=== PATIENT | female | born 1985 | race Caucasian/White ===

== ENCOUNTER → 2018-04-20 | Outpatient (CLI) | payer BC ==
[2018-04-16 14:56] VITALS: BMI 36.6
[2018-04-20 12:15] VITALS: BP 114/76; PULSE 74; RESP 16
--- NOTE | 2018-04-20 12:24 | P.PAINCN ---
History of Present Illness - Reason for Consult Consult date: 04/20/18 Intercostal neuralgia - Chief Complaint Right-sided chest pain - History of Present Illness Stacy is a 33-year-old female who presents today as a new patient consult. She presents with right-sided thoracic chest wall pain. She reports she had this pain a few years back without any known inciting events. She reports at that time she had 2 or 3 intercostal nerve blocks and reports that her pain was completely resolved up until a few months back. She now reports having right- sided thoracic pain which starts very close to the midline in the back and extends across the lower thoracic rib cage into the lower portion of her abdomen. She reports his pain is mostly burning type pain. Not use any medications for this, she has not use any topical medications for this. She has not had any recent injections for this. [place] she went to an orthopedic surgeon who ran x-rays and a bone scan did not find any reason for this. She denies having any trauma to the region. She denies any viral infection rashes in the region. Denies having any surgery in the area. She continues to work full-time at this point Review of Systems 10 point review of systems was done and is negative except as noted in the HPI above. Past Medical History Past Medical History: No Reported History Additional Past Medical History / Comment(s): HAVING PAIN "BRA LINE" ON RT SIDE History of Any Multi-Drug Resistant Organisms: None Reported Past Surgical History: Cholecystectomy Additional Past Surgical History / Comment(s): EGD. PAIN CLINIC NERVE BLOCKS. Past Anesthesia/Blood Transfusion Reactions: No Reported Reaction Smoking Status: Never smoker Medications and Allergies Home Medications Medication Instructions Recorded Confirmed Type diphenhydrAMINE [Benadryl] 25 mg PO HS PRN 02/28/14 03/02/14 History Ibuprofen [Motrin] 600 mg PO Q6HR PRN #60 tab 03/04/14 Rx Allergies Allergy/AdvReac Type Severity Reaction Status Date / Time acetaminophen AdvReac Nausea & Verified 04/20/18 12:08 [From Tylenol-Codeine #3] Vomiting codeine phosphate AdvReac Nausea & Verified 04/20/18 12:08 [From Tylenol-Codeine #3] Vomiting Physical Exam Vitals: Vital Signs Pulse Resp BP Pulse Ox 04/20/18 12:12 74 16 114/76 95 PHYSICAL EXAM: Constitutional: Awake and alert no distress Cardiovascular exam: Regular rate, no lower extremity edema, palpable pulses bilaterally Respiratory exam: No audible wheezing, no accessory muscle usage Abdominal exam: Soft nontender Muscular skeletal exam: - Thoracic Spine: normal spine alignment, no erythema, no rash. Tender to deep palpation to the right of lower thoracic spine, tender over T11-12 region extending into the right flank. - Cervical spine: Nontender to palpation bilaterally. Range of motion is not limited. Her lungs is negative bilateral. Facet loading is negative bilaterally - Lumbar spine: Preserved lumbar lordosis. No changes in skin. Nontender palpation bilateral. Patient has full range of motion in flexion and extension as well as lateral sidebending. Straight leg raise is negative. Facet loading is negative. Nontender over the SI joints. DORIS Negative, Gaenselons negative , SI Joint compression negative. Neuro exam: Normal sensation bilateral upper and lower extremities. Deep tendon reflexes are 2+ bilaterally. Grace's is negative Psychiatric exam: Cooperative, good insight Assessment and Plan Assessment: Intercostal neuralgia Plan: Discussed multiple options for analgesia of the patient. Patient is on any pain medications or any medications that may alter her mental status. I advised the patient to trial [id number] topical lidocaine cream and discuss whether she should place to cream. I've also discussed potentially doing intercostal nerve block and a potential radiofrequency ablation to the intercostal nerves if the block does not last for long. We will schedule her for right-sided T11 and T12 intercostal nerve block to be done in the procedure suite Time with Patient: Greater than 30 PQRS Measure Charge Sheet Measure #130: Documentation of Current Meds in Medical Chart: Patient's medications documented in chart Measure #226: Tobacco Use: Screen & Cessation Intervention: Pt not a tobacco user Measure #111: Pneumonia Vaccination: Pneumococcal vaccine NOT administered or previously given Measure #47: Advance Care Plan: Advance care planning discussed & documented, plan or surrogate given Measure #412: Opioid Treatment Agreement: No documentation of signed opioid treatment agreement Measure #128: Body Mass Index (BMI) Screening & Follow-up: BMI documented ABOVE normal parameters - f/u documented Measure #131: Pain Assessment & Follow-up: Pain positive & plan documented Measure #431: Unhealthy Alcohol Use Preventative Care & Scrn: Patient not identified as an unhealthy alcohol user PQRS Narrative: Smoking Status Never smoker Do You Want the Pneumonia No Vaccine AT THIS TIME? Blood Pressure 114/76 Hx Alcohol Use () No Home Medications: Ambulatory Orders diphenhydrAMINE [Benadryl] 25 mg PO HS PRN 02/28/14 Ibuprofen [Motrin] 600 mg PO Q6HR PRN #60 tab 03/04/14
== END | disposition home or self-care (01) ==
LOC: PNWHC3 11:26
PROVIDERS: ATTEND Hospitalist
DX: G58.0 Intercostal neuropathy (principal); Z88.6 Allergy status to analgesic agent; Z88.5 Allergy status to narcotic agent; Z90.49 Acquired absence of other specified parts of digestive tract
CPT/HCPCS: 99211

== ENCOUNTER → 2018-04-21 | Day surgery (SDC) | payer BC ==
[2018-04-21 08:01] VITALS: TEMP 97.7
--- NOTE | 2018-04-21 08:46 | P.PCN ---
Date of Procedure: 04/21/18 Procedure(s) Performed: PROCEDURE: right sided T10, T11, T12 Intercostal nerve block under fluoroscopic guidance. PREOP DIAGNOSIS: Intercostal neuralgia. POSTOP DIAGNOSIS: Intercostal neuralgia. ANESTHESIA: Moderate sedation with Versed 2 mg , and Fentanyl 100 mcg EBL: Minimal COMPLICATION: None. IV FLUIDS: 100 mL of normal saline. PROCEDURE INDICATION: Chronic right-sided thoracic pain secondary to intercostals neuralgia PROCEDURE DESCRIPTION: The patient was seen and identified in the preoperative area. Risks, benefits, complications, and alternatives were discussed with the patient. The patient agreed to proceed with the procedure and signed the consent. IV was started. Vital signs were stable throughout the procedure. The patient was taken to the procedure room and was placed in the prone position on the procedure table. The thoracic area was prepped and draped in the usual sterile fashion. Critical pause was taken. Using anteroposterior fluoroscopy, the right T10 rib on the right side was identified. An area approximately 2 inches lateral to the vertebral midline was localized under fluoroscopy. Subsequently, a 25-gauge, 3-1/2-inch needle was advanced under fluoroscopy towards the inferior aspect of the rib. After making contact with the rib, the needle was walked off and carefully slipped inferiorly off the rib. After negative aspiration and with the absence of paresthesias, then 1-1/2 mL of the mixture of ropivacaine 0.5% and 40 mg of Kenalog mixed together and 1, 5 ml of the mixture injected after negative aspiration . and the same procedure was repeated at the levels of right T11 ,T12 . At the end of the procedure, skin was cleansed, and bandages were applied. Patient denied any shortness of breath after the procedure. Lungs auscultation showed clear and equal air entry bilaterally after the procedure. The patient tolerated the procedure well without complications. Patient was observed in the recovery area until she met all discharge criteria.
[2018-04-21 08:52] VITALS: RESP 18
[2018-04-21 09:07] VITALS: BP 98/59; PULSE 64
--- NOTE | 2018-04-21 11:06 | FL ---
Fluoroscopy HISTORY: Pain 5 seconds fluoroscopy time supplied to the referring clinician. 1 intraoperative C-arm images document the procedure. See dictated report from anesthesia.
== END ==
LOC: ORPAIN 07:37
PROVIDERS: ATTEND Specialist
DX: G89.29 Other chronic pain (principal); G58.8 Other specified mononeuropathies; Z90.49 Acquired absence of other specified parts of digestive tract; Z79.899 Other long term (current) drug therapy; Z91.048 Other nonmedicinal substance allergy status
CPT/HCPCS: 81025; 64421; J2250; J1030; J3301; J3010; Q9966; 99152

== ENCOUNTER → 2020-01-27 | Outpatient (CLI) | payer BC ==
[2020-01-27 14:46] VITALS: BP 142/87; PULSE 73; TEMP 98.2; BMI 41.5
--- NOTE | 2020-01-27 19:06 | P.HPBAR ---
Bariatric H&P - History & Physicial H&P Date: 01/27/20 History & Physicial: Visit/CC: initial clinic visit Patient initial contact: Initial weight: Initial weight in pounds: Height: 5 ft 10 in Initial BMI: Last weight: Current weight: 131.542 kg Current weight in pounds: 290.00 Current BMI: 41.5 Malcolm body weight (based on NIH guidelines): 68.039 kg Excess body weight loss: The patient is a 35 year-old F who presents for Bariatric Assessment. Patient here as a new patient in the bariatric center. She is interested in sleeve gastrectomy. Patient suffers from depression, chronic hip pain, GERD. Underwent EGD a few years ago showing a small hiatal hernia. Takes over-the- counter antacids. Surgical history includes laparoscopic cholecystectomy and C- section. Denies tobacco use. Patient is in her second month of a 6 month supervised weight loss requirement. BMI currently 41. Denies history of DVT or dysphagia. Review of Systems The patient denies any acute changes in vision or hearing, no dysphagia or odynophagia, no chest pain or shortness of breath, no dysuria or hematuria, no headache, no runny nose, no rectal bleeding or melena, no unexplained weight loss Past Medical History Past Medical History: No Reported History Additional Past Medical History / Comment(s): HAVING PAIN "BRA LINE" ON RT SIDE. History of Any Multi-Drug Resistant Organisms: None Reported Past Surgical History: Section, Cholecystectomy Additional Past Surgical History / Comment(s): EGD. PAIN CLINIC NERVE BLOCKS. Past Anesthesia/Blood Transfusion Reactions: Motion Sickness Smoking Status: Never smoker - Past Family History Mother Family Medical History: No Reported History Surgical - Exam Vital Signs Temp Pulse BP 98.2 F 73 142/87 01/27/20 14:44 01/27/20 14:44 01/27/20 14:44 Physical exam: General: Well-developed, well-nourished HEENT: Normocephalic, sclerae nonicteric Abdomen: Nontender, nondistended Extremities: No edema Neuro: Alert and oriented Bariatric Assessment & Plan (1) Morbid obesity with BMI of 40.0-44.9, adult Narrative/Plan: 35-year-old female with morbid obesity. Patient with associated comorbidities including reflux, depression, chronic hip pain. Patient interested in sleeve gastrectomy which I believe is good surgical option for her. Patient with previous EGD suggesting hiatal hernia. Continue supervised weight loss requirements. She is on her second month. We'll plan EGD in approximately 3 months. She will follow-up in the office with me following that. Risks and benefits of the surgical options reviewed in detail with the patient today. All questions answered. Status: Acute Bariatric Checklist Checklist: Plan: Checklist: EGD: 1. Hiatal hernia: 2. H. Pylori: HgbA1c: Vitamin D: Smoking: Never smoker Primary care physician referral: DR. GARCIA Psychiatry clearance: Cardiology clearance: Sleep study: Diet journal: VTE risk score: VTE risk level: Rehab needs at discharge:
== END | disposition home or self-care (01) ==
LOC: BARWHC3 14:02
PROVIDERS: ATTEND Surgery
DX: E66.01 Morbid (severe) obesity due to excess calories (principal); Z68.41 Body mass index [BMI] 40.0-44.9, adult
CPT/HCPCS: 99211

== ENCOUNTER → 2020-06-23 | Outpatient (CLI) | payer BC ==
[2020-06-23 14:30] LABS: HCT 43.8 % (34.0-46.0); HGB 13.9 gm/dL (11.4-16.0); MCH 28.2 pg (25.0-35.0); MCHC 31.7 g/dL (31.0-37.0); Platelet Count 304 k/uL (150-450); RBC 4.92 m/uL (3.80-5.40); RDW 13.7 % (11.5-15.5)
[2020-06-23 20:22] LABS: Albumin 4.4 g/dL (3.80-4.90); Albumin/Globulin Ratio 2.1 (1.60-3.17); Anion Gap 5.9 mmol/L (4.00-12.00); BUN/Creat Ratio 18.89 Ratio (12.00-20.00); Calcium 9.4 mg/dL (8.7-10.3); Carbon Dioxide 30.1 mmol/L (21.6-31.8); Globulin 2.1 g/dL (1.6-3.3); Non-African American GFR(CKD) 82.8 (60.0-200.0); Potassium 3.9 mmol/L (3.5-5.5); Total Bilirubin 0.3 mg/dL (0.3-1.2); Total Protein 6.5 g/dL (6.2-8.2)
[2020-06-23 20:49] LABS: Folate, Serum 14.8 ng/mL
[2020-06-24 14:55] LABS: Hemoglobin A1C 5.5 % (4.0-6.0)
== END | disposition home or self-care (01) ==
LOC: LABWHC1 13:05
PROVIDERS: ATTEND Surgery
DX: E66.01 Morbid (severe) obesity due to excess calories (principal); K90.89 Other intestinal malabsorption; E55.9 Vitamin D deficiency, unspecified
CPT/HCPCS: 36415; 80053; 82306; 82607; 82746; 83036; 83540; 84425; 85027; 93005

== ENCOUNTER → 2020-10-10 | Outpatient (CLI) | payer BC ==
[2020-10-10 14:58] VITALS: BP 136/87; PULSE 75; TEMP 98.2; BMI 44.1
--- NOTE | 2020-10-10 16:05 | P.BASOAP ---
Subjective Progress Note Date: 10/10/20 Principal diagnosis: Morbid obesity Patient returns. She was last seen in January of last year. Patient with history of GERD, hip pain. Unfortunate she had a restart her supervised weight loss program. She is currently 5 months into a 7 month process. BMI 43. Since her last visit she was diagnosed with leukocytosis and is seeing a make up man in October. She is also found to have elevated inflammatory markers and recently saw rheumatology. She has gained 17 pounds since her last visit. History of hiatal hernia in the past. Objective - Vital Signs Vital signs: Vital Signs Temp 98.2 F 10/10/20 14:53 Pulse 75 10/10/20 14:53 Resp BP 136/87 10/10/20 14:53 Pulse Ox Intake & Output 10/09/20 10/10/20 10/10/20 18:59 06:59 18:59 Weight 139.706 kg - Exam Abdomen: Soft, nontender, nondistended Assessment/Plan (1) Morbid obesity with BMI of 40.0-44.9, adult Narrative/Plan: Discussed options of bariatric surgery once again with the patient. She remains interested in sleeve gastrectomy. We'll schedule first for upper endoscopy. Await supervised weight loss records. Plan: Date: 10/10/20 Initial Weight: Initial BMI: Current Weight: 139.706 kg Current BMI: 44.1 Type of Surgery: Total Volume in Band: Previous Volume: Volume Removed: Volume Added: Band Size:
== END ==
LOC: BARWHC3 14:01
PROVIDERS: ATTEND Surgery
DX: E66.01 Morbid (severe) obesity due to excess calories (principal); Z68.41 Body mass index [BMI] 40.0-44.9, adult
CPT/HCPCS: 99211

== ENCOUNTER → 2020-10-18 | Outpatient (CLI) | payer BC ==
--- NOTE | 2020-10-18 21:31 | MR ---
Result: Clinical Indication: Chronic left hip pain. Comparison: None available. Technique: Multiplanar multisequence MR examination of the left hip with coronal and axial sequences including the pelvis was performed without contrast administration. Findings: There is no significant pulmonary abnormality, acute fracture or dislocation. There is no osteonecro sis of the femoral heads. There are physiologic hip joint fluid. There are mild degenerative changes of bilateral hips. Subop timal evaluation of the acetabular labrum on this nonarthrogram study. No evidence of para labral cys t. Hamstring origins, iliopsoas and gluteal tendons are grossly intact. There is no significant trochant ramos or iliopsoas bursitis. Impression: Mild left hip osteoarthritis. Otherwise no significant abnormality.
== END | disposition home or self-care (01) ==
LOC: RADMRIMAIN 19:37
PROVIDERS: ATTEND Internal Medicine Rheumatology
DX: M16.12 Unilateral primary osteoarthritis, left hip (principal)

== ENCOUNTER 2020-10-24 10:23 | Day surgery (SDC) | payer BC ==
[2020-10-20 14:18] VITALS: BMI 44.0
[~2020-10-24 10:23] MED LIST: LACTATED RINGERS 1,000 ML IV SCH
[2020-10-24 10:52] VITALS: TEMP 97.8
[2020-10-24] MEDS ORDERED: LACTATED RINGERS 1,000 ML IV ONE (10:52)
[2020-10-24] MEDS ORDERED: PROPOFOL 10 MG/ML 20 ML VIAL IV ONE (11:38)
[2020-10-24] MEDS ORDERED: LIDOCAINE 1% INJ 10MG/ML (20 ML MDV) ONE (11:38)
--- NOTE | 2020-10-24 11:40 | P.GSHP ---
History of Present Illness H&P Date: 10/24/20 Chief Complaint: GERD Patient here today for upper endoscopy. Patient being evaluated for possible sleep apnea. Complains of mild reflux. Denies dysphagia. History of hiatal hernia on prior upper endoscopy. Past Medical History Past Medical History: GERD/Reflux, Osteoarthritis (OA) Additional Past Medical History / Comment(s): states appt with striker out scheduled for elevated WBC's., Mirena IUD. History of Any Multi-Drug Resistant Organisms: None Reported Past Surgical History: Section, Cholecystectomy Additional Past Surgical History / Comment(s): EGD. PAIN CLINIC NERVE BLOCKS. Past Anesthesia/Blood Transfusion Reactions: Previous Problems w/ Anesthesia, Motion Sickness Additional Past Anesthesia/Blood Transfusion Reaction / Comment(s): wakes up disoriented and wants to get up. Past Psychological History: Anxiety, Depression Additional Psychological History / Comment(s): . Smoking Status: Never smoker Past Alcohol Use History: Rare Past Drug Use History: None Reported - Past Family History Mother Family Medical History: No Reported History Medications and Allergies Home Medications Medication Instructions Recorded Confirmed Type Cholecalciferol [Vitamin D3] 5,000 units PO DAILY 04/20/18 10/20/20 History Biotin 10,000 mcg PO DAILY 10/20/20 10/20/20 History Ibuprofen 600 mg PO BID 10/20/20 10/20/20 History Magnesium Natural Vitality 83 mg PO DAILY 10/20/20 History Multivit with Calcium,Iron,Min 1 each PO DAILY 10/20/20 10/20/20 History [Women's Multivitamin] Omeprazole 20 mg PO DIRECTED PRN 10/20/20 10/20/20 History traZODone HCL 150 mg PO HS 10/20/20 10/20/20 History Allergies Allergy/AdvReac Type Severity Reaction Status Date / Time acetaminophen AdvReac Nausea & Verified 07/06/20 13:57 [From Tylenol-Codeine #3] Vomiting codeine phosphate AdvReac Nausea & Verified 07/06/20 13:57 [From Tylenol-Codeine #3] Vomiting Surgical - Exam Vital Signs Temp Pulse Resp BP Pulse Ox 97.8 F 78 18 137/78 98 10/24/20 10:51 10/24/20 10:51 10/24/20 10:51 10/24/20 10:51 10/24/20 10:51 Physical exam: General: Well-developed, well-nourished HEENT: Normocephalic, sclerae nonicteric Abdomen: Nontender, nondistended Extremities: No edema Neuro: Alert and oriented Assessment and Plan (1) GERD (gastroesophageal reflux disease) Narrative/Plan: Will proceed with upper endoscopy Current Visit: Yes Status: Acute Code(s): K21.9 - GASTRO-ESOPHAGEAL REFLUX DISEASE WITHOUT ESOPHAGITIS SNOMED Code(s): 666704834
--- NOTE | 2020-10-24 11:54 | P.PCN ---
Date of Procedure: 10/24/20 Procedure(s) Performed: Preoperative Dx: GERD, presurgical Postoperative Dx: Gastritis, small sliding hiatal hernia Procedure: EGD with Bx Anesthesia: Sedation Endoscopist: Dr. Adams Specimens: Antrum Endoscopic Procedure: The patient was on the endoscopy table in the left decubitus position. The Olympus gastroscope was inserted into the oropharynx and passed under direct visualization to the region of the third portion of the duodenum. From that point the scope was slowly withdrawn inspecting all s urfaces carefully. There were no neoplastic inflammatory or polypoid lesions throughout the duodenum. The pylorus was widely patent. The stomach was carefully inspected. There was mild gastritis present. A biopsy of the antrum took place to rule out H. pylori. Retroflexion revealed a small sliding hiatal hernia. The GE junction was present approximately 1 cm or so above the diaphragmatic hiatus. The esophagus was then carefully examined. There were no neoplastic inflammatory or polypoid lesions throughout the visualized esophagus. The patient was then taken to the recovery room in stable condition per anesthesia guidelines. Recommendations: Resume diet. Await biopsy results. Follow-up bariatric
[2020-10-24 12:09] VITALS: RESP 16
[2020-10-24 12:33] VITALS: BP 116/80; PULSE 71
== END 2020-10-24 12:40 | disposition home or self-care (01) ==
LOC: ORWHC2ENDO 10:23
PROVIDERS: ATTEND Surgery
DX: K29.50 Unspecified chronic gastritis without bleeding (principal); K44.9 Diaphragmatic hernia without obstruction or gangrene; K21.9 Gastro-esophageal reflux disease without esophagitis; M19.90 Unspecified osteoarthritis, unspecified site; Z97.5 Presence of (intrauterine) contraceptive device; Z98.891 History of uterine scar from previous surgery; Z90.49 Acquired absence of other specified parts of digestive tract; Z98.890 Other specified postprocedural states; F41.9 Anxiety disorder, unspecified; F32.9 Major depressive disorder, single episode, unspecified; E66.01 Morbid (severe) obesity due to excess calories; Z68.41 Body mass index [BMI] 40.0-44.9, adult; Z79.1 Long term (current) use of non-steroidal anti-inflammatories (NSAID); Z79.899 Other long term (current) drug therapy; Z88.5 Allergy status to narcotic agent
CPT/HCPCS: 81025; 88305; 43239; J2001; J2704; 43202

== ENCOUNTER → 2020-10-30 | Outpatient (CLI) | payer BC ==
[2020-10-31 09:03] VITALS: BMI 44.2
== END ==
LOC: BARWHC3 08:43
PROVIDERS: ATTEND Surgery
DX: E66.01 Morbid (severe) obesity due to excess calories (principal); Z71.3 Dietary counseling and surveillance; Z88.5 Allergy status to narcotic agent; Z88.6 Allergy status to analgesic agent; Z68.41 Body mass index [BMI] 40.0-44.9, adult
CPT/HCPCS: 97804

== ENCOUNTER → 2020-11-07 | Outpatient (CLI) | payer BC ==
[2020-11-07 16:07] VITALS: BP 118/76; PULSE 73; TEMP 98.2; BMI 44.0
--- NOTE | 2020-11-07 17:44 | P.BASOAP ---
Subjective Progress Note Date: 11/07/20 Principal diagnosis: Morbid obesity Patient returns after recent upper endoscopy. Patient was found to have gastritis and a small hiatal hernia. No H. pylori. Since seen last time patient has had clearance from rheumatology. She is still waiting for clearance for hematology regarding her leukocytosis. She is having a sciatic nerve injection on 11/24. No additional changes to the history and physical. Objective - Vital Signs Vital signs: Vital Signs Temp 98.2 F 11/07/20 16:04 Pulse 73 11/07/20 16:04 Resp BP 118/76 11/07/20 16:04 Pulse Ox Intake & Output 11/06/20 11/07/20 11/07/20 18:59 06:59 18:59 Weight 139.253 kg - Exam Abdomen: Soft, nontender, nondistended Assessment/Plan (1) Morbid obesity with BMI of 40.0-44.9, adult Narrative/Plan: Patient doing well after recent upper endoscopy. Surgical consent form and associated risks reviewed in detail. Patient would like to proceed with sleeve gastrectomy. The risks of bleeding, infection, stenosis, stricture, leak, abscess, fistula formation, peritonitis, poor weight loss, reflux, vomiting, conversion to an open procedure, aborting sleeve gastrectomy, MS, PE, DVT, and were discussed. The patient understands and wishes to proceed. Await hematology clearance. We'll schedule. Plan: Date: 11/07/20 Initial Weight: Initial BMI: Current Weight: 139.253 kg Current BMI: 44.0 Type of Surgery: Total Volume in Band: Previous Volume: Volume Removed: Volume Added: Band Size:
== END ==
LOC: BARWHC3 14:30
PROVIDERS: ATTEND Surgery
DX: E66.01 Morbid (severe) obesity due to excess calories (principal); K44.9 Diaphragmatic hernia without obstruction or gangrene; K29.70 Gastritis, unspecified, without bleeding; Z68.41 Body mass index [BMI] 40.0-44.9, adult; Z88.6 Allergy status to analgesic agent; Z88.5 Allergy status to narcotic agent
CPT/HCPCS: 99211

== ENCOUNTER → 2021-01-01 | Outpatient (CLI) | payer BC ==
[2021-01-01 15:49] LABS: Basophils # (A) 0.1 k/uL (0-0.2); Basophils % (A) 1 %; Eosinophils # (A) 0.3 k/uL (0-0.7); Eosinophils % (A) 2 %; Lymphocytes # (A) 2.4 k/uL (1.0-4.8); Lymphocytes % (A) 19 %; MCH 28.9 pg (25.0-35.0); MCHC 32.4 g/dL (31.0-37.0); MCV 89.2 fL (80.0-100.0); Mean Platelet Volume 6.8; Monocytes # (A) 0.4 k/uL (0-1.0); Monocytes % (A) 3 %; Neutrophils # (A) 9.1 k/uL (1.3-7.7); Neutrophils % (A) 73 %; Platelet Count 261 k/uL (150-450); RBC 4.83 m/uL (3.80-5.40); RDW 14.6 % (11.5-15.5); WBC 12.6 k/uL (3.8-10.6)
[2021-01-01 15:58] LABS: ALT 28 U/L (4-34); AST 27 U/L (14-36); African American GFR (CKD) >90 (>60 ml/min/1.73 sqM); Albumin 4.2 g/dL (3.5-5.0); Alkaline Phosphatase 94 U/L (38-126); Anion Gap 8 mmol/L; Blood Urea Nitrogen 16 mg/dL (7-17); Calcium 9.6 mg/dL (8.4-10.2); Carbon Dioxide 27 mmol/L (22-30); Chloride 102 mmol/L (98-107); Glucose 87 mg/dL (74-99); Non-African American GFR(CKD) >90 (>60 ml/min/1.73 sqM); Potassium 3.8 mmol/L (3.5-5.1); Sodium 137 mmol/L (137-145); Total Bilirubin 0.5 mg/dL (0.2-1.3); Total Protein 6.9 g/dL (6.3-8.2)
== END | disposition home or self-care (01) ==
LOC: LABWHC1 15:22
PROVIDERS: ATTEND Surgery
DX: Z01.812 Encounter for preprocedural laboratory examination (principal)
CPT/HCPCS: 36415; 80053; 85025

== ENCOUNTER 2021-01-15 07:45 | Inpatient (IN) | payer BC ==
[~2021-01-15 07:45] MED LIST changes: +DEXAMETHASONE SOD PHOSPHATE 4 MG/ML 1 ML VIAL IV ONE; +ENOXAPARIN 40 MG/0.4 ML SYRINGE SQ PRN; -LACTATED RINGERS 1,000 ML IV SCH; +MIDAZOLAM 2 MG/2 ML VIAL IV PRN; +ONDANSETRON 4 MG/2 ML VIAL IVP ONE; +SCOPOLAMINE 1.5MG/72HR PATCH TRANSDERM ONE; +ceFAZolin 3 GM in SODIUM CHLORIDE 0.9% 100 ML IVPB PRN
[2021-01-15] MEDS ORDERED: LACTATED RINGERS 1,000 ML IV ONE ×2 (09:12→12:08)
--- NOTE | 2021-01-15 10:15 | P.GSHP ---
History of Present Illness H&P Date: 01/15/21 Chief Complaint: Morbid obesity 36-year-old female known to our service. Patient with history of morbid obesity. First seen for bariatric weight loss in January 2020. Patient's over from depression, hip pain, GERD. Patient interested in sleeve gastrectomy. Underwent EGD which showed mild gastritis and small hiatal hernia. Patient takes [id number] antacids. Surgical history includes laparoscopic cholecystectomy and . No tobacco use. No history of DVT or dysphasia. BMI 41. Patient was seen by hematology for leukocytosis and cleared. Past Medical History Past Medical History: GERD/Reflux, Osteoarthritis (OA) Additional Past Medical History / Comment(s): hiatal hernia, arthritis in hips, had increased WBC's -told due to not absorbing iron, steroids 07/2020 History of Any Multi-Drug Resistant Organisms: None Reported Past Surgical History: Section, Cholecystectomy Additional Past Surgical History / Comment(s): EGD. PAIN CLINIC NERVE BLOCKS. Past Anesthesia/Blood Transfusion Reactions: Previous Problems w/ Anesthesia, Motion Sickness, Postoperative Nausea & Vomiting (PONV) Additional Past Anesthesia/Blood Transfusion Reaction / Comment(s): "I wake up confused and want to get right up", Smoking Status: Never smoker - Past Family History Mother Family Medical History: No Reported History Medications and Allergies Home Medications Medication Instructions Recorded Confirmed Type Cholecalciferol [Vitamin D3] 5,000 units PO DAILY 04/20/18 01/10/21 History Biotin 10,000 mcg PO DAILY 10/20/20 01/10/21 History Ibuprofen 600 mg PO BID 10/20/20 01/10/21 History Magnesium Natural Vitality 83 mg PO DAILY 10/20/20 01/10/21 History Multivit with Calcium,Iron,Min 1 each PO DAILY 10/20/20 01/10/21 History [Women's Multivitamin] Omeprazole 20 mg PO DIRECTED PRN 10/20/20 01/10/21 History traZODone HCL 150 mg PO HS 10/20/20 01/10/21 History Citalopram Hydrobromide [CeleXA] 20 mg PO HS 01/10/21 01/10/21 History levonorgestreL [Mirena] 1 each IY DIRECTED 01/10/21 01/10/21 History Allergies Allergy/AdvReac Type Severity Reaction Status Date / Time acetaminophen AdvReac Nausea & Verified 01/10/21 10:21 [From Tylenol-Codeine #3] Vomiting codeine phosphate AdvReac Nausea & Verified 01/10/21 10:21 [From Tylenol-Codeine #3] Vomiting bubble bath Allergy Rash/Hives Uncoded 01/10/21 10:21 perfume Allergy Rash/Hives Uncoded 01/10/21 10:21 Surgical - Exam Vital Signs Temp Pulse Resp BP Pulse Ox 97.8 F 65 18 124/76 99 01/15/21 09:11 01/15/21 09:11 01/15/21 09:11 01/15/21 09:11 01/15/21 09:11 Physical exam: General: Well-developed, well-nourished HEENT: Normocephalic, sclerae nonicteric Abdomen: Nontender, nondistended Extremities: No edema Neuro: Alert and oriented Assessment and Plan (1) Morbid obesity with BMI of 40.0-44.9, adult Narrative/Plan: The residual female with morbid obesity and associated comorbidities. Patient also with hiatal hernia on recent EGD will proceed with laparoscopic sleeve ga strectomy with hiatal hernia repair at this time. The risks of bleeding, infection, stenosis, stricture, leak, abscess, fistula formation, peritonitis, poor weight loss, reflux, vomiting, conversion to an open procedure, aborting sleeve gastrectomy, [place], PE, DVT, and were discussed. The patient understands and wishes to proceed. Current Visit: No Status: Acute Code(s): E66.01 - MORBID (SEVERE) OBESITY DUE TO EXCESS CALORIES; Z68.41 - BODY MASS INDEX [BMI]40.0-44.9, ADULT SNOMED Code(s): 370924738
[2021-01-15] MEDS ORDERED: HYDROmorphone (PF) 1 MG/ML ONE (10:41)
[2021-01-15] MEDS ORDERED: fentaNYL (PF) 50 MCG/ML 2 ML AMP ONE (10:41)
[2021-01-15] MEDS ORDERED: MIDAZOLAM 2 MG/2 ML VIAL ONE (10:41)
[2021-01-15] MEDS ORDERED: LIDOCAINE 1% INJ 10MG/ML (20 ML MDV) ONE (10:41)
[2021-01-15] MEDS ORDERED: ROCURONIUM 10 MG/ML (5 ML VIAL) IV ONE (10:41)
[2021-01-15] MEDS ORDERED: PROPOFOL 10 MG/ML 20 ML VIAL IV ONE (10:41)
[2021-01-15] MEDS ORDERED: NEOSTIGMINE 1 MG/ML 10 ML VIAL ONE (10:41)
[2021-01-15] MEDS ORDERED: SUCCINYLCHOLINE CHLORIDE 100 MG/5 ML SYR IV ONE (10:41)
[2021-01-15] MEDS ORDERED: GLYCOPYRROLATE 0.2 MG/ML 2 ML VIAL ONE (10:41)
[2021-01-15] MEDS ORDERED: LIDOCAINE 1%-EPI 1:100,000 20 ML VIAL SQ ONE ×2 (11:12)
[2021-01-15] MEDS ORDERED: diphenhydrAMINE 50 MG/ML 1 ML VIAL IVP PRN (12:48)
[2021-01-15] MEDS ORDERED: NALOXONE 0.4 MG/ML 1 ML VIAL IV PRN (12:48)
[2021-01-15] MEDS ORDERED: HYOSCYAMINE ORAL DROPS 1.875 MG/15 ML BOTTLE PO PRN (12:48)
--- NOTE | 2021-01-15 12:53 | P.OP ---
Date of Procedure: 01/15/21 Procedure(s) Performed: PREOPERATIVE DIAGNOSIS: Morbid obesity POSTOPERATIVE DIAGNOSIS: Same PROCEDURE: Laparoscopic sleeve gastrectomy SURGEON: Angie EBL: Minimal ANESTHESIA: General COMPLICATIONS: None OPERATIVE PROCEDURE: Patient was placed in the operating table in the supine position. She was placed under general anesthesia at that time. The abdomen was prepped and draped in sterile fashion after the patient was placed in lithotomy. A 5 mm optical trocar was used to enter the abdominal cavity in the left upper quadrant. Insufflation took place to 15 millimeters mercury. An additional right subxiphoid 5 mm trocar was then placed under direct visualization and then removed. 2 additional 5 mm trochars were placed in the right upper quadrant and left upper quadrant under direct visualization and a 15 mm trocar in the supraumbilical location. The liver was retracted using a medium Huan liver retractor through the right subxiphoid trocar site. The hiatus was inspected. The gastrohepatic ligament was divided. A small vessel was seen traversing this which was clipped. As I inspected the stomach circumferentially there was no visible hiatal hernia seen. At that point I moved to the mid aspect of the greater curvature the stomach. The short gastric vasculature was divided using a LigaSure device proximally. I then switched and divided the short gastrics distally to a 3-4 cm from the pylorus. The dissection took place up to the left diaphragmatic crura at that point. The posterior short gastrics were likewise divided using the LigaSure device. Once the stomach was fully mobilized the blunt tipped 40-Czech bougie dilator was advanced into the stomach and advanced all the way to the prepyloric location. A black echelon 60 stapler with echelon Endopath staple line reinforcement was utilized and fired tangentially across the antrum taking care to avoid narrowing at the incisura angularis. Subsequent firings of the stapler took place. A total of 5 green echelon 60 staplers with echelon Endopath staple line reinforcement took place proximally staying on the outer edge of our dilator. Once we reached the most proximal portion of the stomach a single firing of the gold echelon [address] The oral gastric tube was reinserted. The stomach was insufflated with approximately 100 mL of methylene blue. No evidence of leak or obstruction was seen. The patient did during the procedure have a few small areas of bleeding along the staple line which were controlled using a 5 mm clip supervisor meter shop. Tisseel fibrin glue was used along the length of the staple line. The stomach remnant was removed from the 15 mm trocar site without difficulty. The fascia at the 15 more site was closed using interrupted 0 Vicryl sutures with the laparoscopic suture passer and Tunde Emerson technique. The insufflation was evacuated. The skin at all 5 incisions were closed using 4-0 Monocryl sutures. Skin glue was then applied. DISPOSITION: Stable to recovery room
[2021-01-15] MEDS: fentaNYL (PF) 50 MCG/ML 2 ML AMP IV PRN ×2 (13:17→13:22)
[2021-01-15] MEDS ORDERED: HYDROmorphone 1 MG/ML 1 ML SYRINGE IVP ONE (13:32)
[2021-01-15] MEDS ORDERED: HYDROmorphone 0.5 MG/0.5 ML SYRINGE IVP ONE ×2 (14:02→14:44)
[2021-01-15] MEDS: SIMETHICONE 40 MG/0.6 ML DROPS 2,000 MG/30 ML BOTTLE PO PRN (14:27)
--- NOTE | 2021-01-15 14:39 | P.CONS ---
History of Present Illness - Reason for Consult Depression, gastroesophageal reflux disease - History of Present Illness Patient is a 36-year-old the female admitted for laparoscopic sleeve gastrectomy, I saw her postoperatively patient is in significant pain received Dilaudid and fentanyl for pain. Patient was bit nauseous as well. REVIEW OF SYSTEMS: CONSTITUTIONAL: No fever, no malaise, no fatigue. HEENT: No recent visual problems or hearing problems. Denied any sore throat. CARDIOVASCULAR: No chest pain, orthopnea, PND, no palpitations, no syncope. PULMONARY: No shortness of breath, no cough, no hemoptysis. GASTROINTESTINAL as mentioned in HPI. NEUROLOGICAL: No headaches, no weakness, no numbness. HEMATOLOGICAL: Denies any bleeding or petechiae. GENITOURINARY: Denies any burning micturition, frequency, or urgency. MUSCULOSKELETAL/RHEUMATOLOGICAL: Denies any joint pain, swelling, or any muscle pain. ENDOCRINE: Denies any polyuria or polydipsia. The rest of the 14-point review of systems is negative. PHYSICAL EXAMINATION: GENERAL: The patient is alert and oriented x3, not in any acute distress. Well developed, well nourished. Obese HEENT: Pupils are round and equally reacting to light. EOMI. No scleral icterus. No conjunctival pallor. Normocephalic, atraumatic. No pharyngeal erythema. No thyromegaly. CARDIOVASCULAR: S1 and S2 present. No murmurs, rubs, or gallops. PULMONARY: Chest is clear to auscultation, no wheezing or crackles. ABDOMEN: Soft, tenderness and pain in the surgical site area, nondistended, normoactive bowel sounds. No palpable organomegaly. MUSCULOSKELETAL: No joint swelling or deformity. EXTREMITIES: No cyanosis, clubbing, or pedal edema. NEUROLOGICAL: Gross neurological examination did not reveal any focal deficits. SKIN: No rashes. Assessment and plan - obesity status post laparoscopic sleeve gastrectomy patient will be monitored and he'll present pain medications. pain is expected to improve. Patient received simethicone and Protonix. -Costa physical reflux disease -Depression for which patient is on citalopram patient was started on this medication whenever she can tolerate by mouth medications. DVT prophylaxis: Patient is on Lovenox Past Medical History Past Medical History: GERD/Reflux, Osteoarthritis (OA) Additional Past Medical History / Comment(s): hiatal hernia, arthritis in hips, had increased WBC's -told due to not absorbing iron, steroids 07/2020 History of Any Multi-Drug Resistant Organisms: None Reported Past Surgical History: Section, Cholecystectomy Additional Past Surgical History / Comment(s): EGD. PAIN CLINIC NERVE BLOCKS. Past Anesthesia/Blood Transfusion Reactions: Previous Problems w/ Anesthesia, Motion Sickness, Postoperative Nausea & Vomiting (PONV) Additional Past Anesthesia/Blood Transfusion Reaction / Comm: "I wake up confused and want to get right up", Smoking Status: Never smoker - Past Family History Mother Family Medical History: No Reported History Medications and Allergies Home Medications Medication Instructions Recorded Confirmed Type Cholecalciferol [Vitamin D3] 5,000 units PO DAILY 04/20/18 01/10/21 History Biotin 10,000 mcg PO DAILY 10/20/20 01/10/21 History Ibuprofen 600 mg PO BID 10/20/20 01/10/21 History Magnesium Natural Vitality 83 mg PO DAILY 10/20/20 01/10/21 History Multivit with Calcium,Iron,Min 1 each PO DAILY 10/20/20 01/10/21 History [Women's Multivitamin] Omeprazole 20 mg PO DIRECTED PRN 10/20/20 01/10/21 History traZODone HCL 150 mg PO HS 10/20/20 01/10/21 History Citalopram Hydrobromide [CeleXA] 20 mg PO HS 01/10/21 01/10/21 History levonorgestreL [Mirena] 1 each IY DIRECTED 01/10/21 01/10/21 History Allergies Allergy/AdvReac Type Severity Reaction Status Date / Time acetaminophen AdvReac Nausea & Verified 01/10/21 10:21 [From Tylenol-Codeine #3] Vomiting codeine phosphate AdvReac Nausea & Verified 01/10/21 10:21 [From Tylenol-Codeine #3] Vomiting bubble bath Allergy Rash/Hives Uncoded 01/10/21 10:21 perfume Allergy Rash/Hives Uncoded 01/10/21 10:21 Physical Exam Vitals: Vital Signs Temp Pulse Resp BP BP Pulse Ox 01/15/21 14:30 79 16 155/87 97 01/15/21 14:15 80 16 156/88 95 01/15/21 14:00 78 16 153/78 98 01/15/21 13:47 90 16 151/66 97 01/15/21 13:29 93 16 141/71 96 01/15/21 13:14 82 16 132/66 96 01/15/21 12:59 87 20 153/81 98 01/15/21 09:11 97.8 F 65 18 124/76 99 Intake and Output 01/14/21 01/15/21 01/15/21 22:59 06:59 14:59 Intake Total 1200 Output Total 10 Balance 1190 Intake: IV 1200 Output: Estimated Blood Loss 10 Other: Weight 130.3 kg
[2021-01-15] MEDS ORDERED: PROMETHAZINE INJ 25 MG/ML 1 ML VIAL IVPB ONE ×2 (15:10→16:30)
[2021-01-15] MEDS ORDERED: fentaNYL (PF) 50 MCG/ML 2 ML AMP IVP ONE (15:44)
[2021-01-15] MEDS ORDERED: fentaNYL (PF) 50 MCG/ML 2 ML AMP IV ONE (16:28)
[2021-01-15] MEDS: LACTATED RINGERS 1,000 ML IV SCH ×3 (17:04→21:34)
[2021-01-15] MEDS ORDERED: MEPERIDINE 50 MG/ML SYRINGE IVP ONE (17:43)
[2021-01-15] MEDS: ONDANSETRON 4 MG/2 ML VIAL IVP PRN (20:05)
[2021-01-15] MEDS: ALBUTEROL NEBULIZED 2.5 MG/3 ML INHALATION SCH ×2 (20:06→20:11)
[2021-01-15] MEDS: HYDROmorphone 1 MG/ML 1 ML SYRINGE IVP PRN ×2 (21:02→23:15)
[2021-01-15] MEDS: 0.9% NACL WITH KCL 20 MEQ/L 1,000 ML IV SCH (21:32)
[2021-01-15] MEDS: ENOXAPARIN 40 MG/0.4 ML SYRINGE SQ SCH (23:15)
[2021-01-15] MEDS: traZODone HCL 50 MG TAB PO SCH (23:16)
[2021-01-15] MEDS: CITALOPRAM HYDROBROMIDE 20 MG TAB PO SCH (23:16)
[2021-01-16] MEDS: ONDANSETRON 4 MG/2 ML VIAL IVP PRN ×4 (01:38→20:56)
[2021-01-16] MEDS: HYDROmorphone 1 MG/ML 1 ML SYRINGE IVP PRN ×5 (01:38→14:20)
[2021-01-16] MEDS: SIMETHICONE 40 MG/0.6 ML DROPS 2,000 MG/30 ML BOTTLE PO PRN ×4 (01:50→20:49)
[2021-01-16] MEDS: 0.9% NACL WITH KCL 20 MEQ/L 1,000 ML IV SCH (03:49)
[2021-01-16] MEDS: PANTOPRAZOLE 40 MG/10 ML VIAL IV SCH (07:13)
[2021-01-16] MEDS: ALBUTEROL NEBULIZED 2.5 MG/3 ML INHALATION SCH ×4 (07:15→18:54)
[2021-01-16 08:44] LABS: Basophils % (A) 0 %; Eosinophils # (A) 0.1 k/uL (0-0.7); Eosinophils % (A) 0 %; HCT 50.5 % (34.0-46.0); HGB 16.5 gm/dL (11.4-16.0); Lymphocytes # (A) 1.5 k/uL (1.0-4.8); Lymphocytes % (A) 8 %; MCH 30.3 pg (25.0-35.0); MCHC 32.7 g/dL (31.0-37.0); MCV 92.4 fL (80.0-100.0); Mean Platelet Volume 8.8; Monocytes # (A) 1.1 k/uL (0-1.0); Monocytes % (A) 6 %; Neutrophils # (A) 15.1 k/uL (1.3-7.7); Neutrophils % (A) 84 %; Platelet Count 267 k/uL (150-450); RBC 5.46 m/uL (3.80-5.40); RDW 13.9 % (11.5-15.5)
[2021-01-16 09:18] VITALS: BMI 41.2
[2021-01-16 09:50] LABS: African American GFR (CKD) >90 (>60 ml/min/1.73 sqM); Anion Gap 14 mmol/L; Blood Urea Nitrogen 8 mg/dL (7-17); Calcium 9.4 mg/dL (8.4-10.2); Carbon Dioxide 22 mmol/L (22-30); Chloride 102 mmol/L (98-107); Non-African American GFR(CKD) >90 (>60 ml/min/1.73 sqM); Phosphorus 2.9 mg/dL (2.5-4.5); Potassium 4.7 mmol/L (3.5-5.1); Sodium 138 mmol/L (137-145)
[2021-01-16] MEDS ORDERED: DEXAMETHASONE SOD PHOSPHATE 4 MG/ML 1 ML VIAL IV STA (10:18)
[2021-01-16] MEDS: 1: MVI, ADULT NO.4 WITH VIT K 10 ML, THIAMINE 100 MG, FOLIC ACID 1 MG, POTASSIUM CHLORID IV SCH ×12 (10:25→17:34)
--- NOTE | 2021-01-16 11:14 | FL ---
SINGLE CONTRAST UPPER GI EXAMINATION: CLINICAL HISTORY: 36-year-old female postop bariatric surgery, sleeve gastrectomy. TECHNIQUE: Single contrast exam performed with 5 ml Isovue-370 contrast. Total fluoroscopy time: 46 seconds. Total images: 16. FINDINGS: The patient swallowed oral contrast with difficulty due to nausea with only 3 swallows. Esophageal pe ristalsis and motility are within normal limits. There is satisfactory passage of contrast from the e sophagus into the stomach with post surgical changes of gastrectomy demonstrated. There is adequate f low of contrast across the spleen and into the duodenum. There is no evidence of contrast extravasati on to suggest leak. Trace to mild postoperative free air below the right hemidiaphragm. Mild patchy retrocardiac opacity, probably atelectasis. IMPRESSION: 1. Limited ingestion of oral contrast due to nausea. No evidence for leak or obstruction status post sleeve gastrectomy. 2. Trace to mild postoperative free air below the right hemidiaphragm. Some patchy retrocardiac opaci ty, probably atelectasis.
--- NOTE | 2021-01-16 11:36 | P.PN ---
<Aye Chavez - Last Filed: 01/16/21 11:31> Subjective Progress Note Date: 01/16/21 CHIEF COMPLAINT: Morbid obesity HISTORY OF PRESENT ILLNESS: Patient is status post laparoscopic sleeve gastrectomy. Postop day #1. She is complaining of nausea and dry heaves. The Dilaudid does make the nausea worse. She denies any flatus. She denies any difficulty urinating. Afebrile. Her upper GI shows limited ingestion of oral contrast due to nausea. No evidence for leak or extraction status post gastrectomy. Trace to mild postoperative free air below the right hemidiaphragm. Some patchy retrocardiac opacity, probably atelectasis. Afebrile. WBC is 18 hemoglobin 16.5 platelets 267 sodium 138 potassium 4.7 creatinine 0.65 magnesium 2.0 phosphorus 2.9 PHYSICAL EXAM: VITAL SIGNS: Reviewed. GENERAL: Well-developed in no acute distress. HEENT: No sclera icterus. Extraocular movements grossly intact. Moist buccal mucosa. Head is atraumatic, normocephalic. ABDOMEN: Soft. Nondistended. Incision sites clean dry and intact NEUROLOGIC: Alert and oriented. Cranial nerves II through XII grossly intact. ASSESSMENT: 1. Morbid obesity status post laparoscopic sleeve gastrectomy PLAN: -Start bariatric clear liquid diet -Patient given 1 dose of dexamethasone for nausea and dry heaves -IV Tylenol added for pain control -Continue antiemetics -Encourage patient to ambulate -Encourage patient to use incentive spirometer -GI prophylaxis Protonix and DVT prophylaxis Lovenox Physician Honing Machine Set Up Operator note has been reviewed by physician. Signing provider agrees with the documented findings, assessment, and plan of care. Objective - Vital Signs Vital signs: Vital Signs Temp 98.2 F 01/16/21 07:29 Pulse 83 01/16/21 07:29 Resp 16 01/16/21 07:29 BP 161/93 01/16/21 07:29 Pulse Ox 92 L 01/16/21 07:29 Intake & Output 01/15/21 01/16/21 01/16/21 18:59 06:59 18:59 Intake Total 2200 Output Total 10 Balance 2189 Weight 130.3 kg 130.3 kg 130.3 kg Intake: IV 2200 Output: Estimated Blood Loss 10 Other: Voiding Method Toilet # Voids 2 - Labs CBC & Chem 7: 01/16/21 06:43 08/03/21 06:43 Labs: Abnormal Lab Results - Last 24 Hours (Table) 01/16/21 Range/Units 06:43 WBC 18.0 H (3.8-10.6) k/uL RBC 5.46 H (3.80-5.40) m/uL Hgb 16.5 H (11.4-16.0) gm/dL Hct 50.5 H (34.0-46.0) % Neutrophils # 15.1 H (1.3-7.7) k/uL Monocytes # 1.1 H (0-1.0) k/uL <Ishan Adams - Last Filed: 01/16/21 15:54> Subjective As above. Patient was having nausea with some intermittent dry heaves earlier today. These have improved. She is now tolerating sips of liquids. White blood cell count 18. No tachycardia. Continue increasing activity. Objective - Vital Signs Vital signs: Vital Signs Temp 98.2 F 01/16/21 14:40 Pulse 75 01/16/21 14:40 Resp 16 01/16/21 14:40 BP 164/95 01/16/21 14:40 Pulse Ox 97 01/16/21 14:40 Intake & Output 01/15/21 01/16/21 01/16/21 18:59 06:59 18:59 Intake Total 2200 Output Total 10 Balance 2190 Weight 130.3 kg 130.3 kg 130.3 kg Intake: IV 2200 Output: Estimated Blood Loss 10 Other: Voiding Method Toilet # Voids 2 6 - Labs CBC & Chem 7: 01/16/21 06:43 01/16/21 06:43 Labs: Abnormal Lab Results - Last 24 Hours (Table) 01/16/21 Range/Units 06:43 WBC 18.0 H (3.8-10.6) k/uL RBC 5.46 H (3.80-5.40) m/uL Hgb 16.5 H (11.4-16.0) gm/dL Hct 50.5 H (34.0-46.0) % Neutrophils # 15.1 H (1.3-7.7) k/uL Monocytes # 1.1 H (0-1.0) k/uL Assessment and Plan (1) Morbid obesity with BMI of 40.0-44.9, adult Current Visit: No Status: Acute Code(s): E66.01 - MORBID (SEVERE) OBESITY DUE TO EXCESS CALORIES; Z68.41 - BODY MASS INDEX [BMI]40.0-44.9, ADULT SNOMED Code(s): 884962956
[2021-01-16] MEDS: ENOXAPARIN 40 MG/0.4 ML SYRINGE SQ SCH (11:38)
[2021-01-16] MEDS: ACETAMINOPHEN IV (For NPO) 1,000 MG in EMPTY BAG 1 BAG IVPB SCH ×2 (11:47→17:33)
--- NOTE | 2021-01-16 13:56 | P.PN ---
Subjective Progress Note Date: 01/16/21 Patient is a 36-year-old the female admitted for laparoscopic sleeve gastrectomy, I saw her postoperatively patient is in significant pain received Dilaudid and fentanyl for pain. Patient was bit nauseous as well. 01/16/2021 Patient is examined at the bedside today, resting in bed. She states she is having quite a bit of nausea. Zofran has been given this morning. She is requesting something additional for her nausea. Patient has completed her upper GI series, it was a limited study due to patient being able unable to swallow the barium related to her nausea. Patient has been advanced to a bariatric clear liquid diet via surgical services. Patient is receiving IV Tylenol for pain management, and addition to IV Dilaudid. Patient is receiving TPN. Vital signs are stable with morning including a temperature of 98.2. Heart rate of 83, blood pressure 161/93, and patient is 92% on room air. ROS: Constitutional: Denied any fatigue denied any fever. Cardio vascular: denied any chest pain, palpitations Gastrointestinal denied any vomiting, reports nasuea Pulmonary: Denied any shortness of breath cough Neurologic denied any new focal deficits All inpatient medications were reviewed and appropriate changes in these medications as dictated in the interval history and assessment and plan. PHYSICAL EXAMINATION: GENERAL: The patient is alert and oriented x3, not in any acute distress. Well developed, well nourished. HEENT: Pupils are round and equally reacting to light. EOMI. No scleral icterus. No conjunctival pallor. Normocephalic, atraumatic. No pharyngeal erythema. No thyromegaly. CARDIOVASCULAR: S1 and S2 present. No murmurs, rubs, or gallops. PULMONARY: Chest is clear to auscultation, no wheezing or crackles. ABDOMEN: Soft, nontender, nondistended, normoactive bowel sounds. No palpable organomegaly. MUSCULOSKELETAL: No joint swelling or deformity. EXTREMITIES: No cyanosis, clubbing, or pedal edema. NEUROLOGICAL: Gross neurological examination did not reveal any focal deficits. SKIN: No rashes. Assessment and plan - obesity, BMI 41.2. status post op day 1 laparoscopic sleeve gastrectomy, patient will be closely monitored, Pain is expected to improve. Patient has complaints of quite a bit of nausea. Zofran on board. A one-time dose of dexamethasone was given via surgical services to help with the nausea and pain. Patient has been advanced to a bariatric clear diet. -Gastrointestinal reflux disease, patient will continue on IV Protonix -Depression for which patient is on citalopram patient was started on this medication whenever she can tolerate by mouth medications. -Patient will continue to use incentive spirometer and increase activity. DVT prophylaxis: Patient is on Lovenox Objective - Vital Signs Vital signs: Vital Signs Temp 98.2 F 01/16/21 07:29 Pulse 83 01/16/21 07:29 Resp 16 01/16/21 07:29 BP 161/93 01/16/21 07:29 Pulse Ox 92 L 01/16/21 07:29 Intake & Output 01/15/21 01/16/21 01/16/21 18:59 06:59 18:59 Intake Total 2200 Output Total 10 Balance 2190 Weight 130.3 kg 130.3 kg 130.3 kg Intake: IV 2200 Output: Estimated Blood Loss 10 Other: Voiding Method Toilet # Voids 2 - Labs CBC & Chem 7: 01/16/21 06:43 01/16/21 06:43 Labs: Abnormal Lab Results - Last 24 Hours (Table) 01/16/21 Range/Units 06:43 WBC 18.0 H (3.8-10.6) k/uL RBC 5.46 H (3.80-5.40) m/uL Hgb 16.5 H (11.4-16.0) gm/dL Hct 50.5 H (34.0-46.0) % Neutrophils # 15.1 H (1.3-7.7) k/uL Monocytes # 1.1 H (0-1.0) k/uL Assessment and Plan Time with Patient: Greater than 30
[2021-01-16] MEDS ORDERED: KETOROLAC 15 MG/ML 1 ML VIAL IVP SCH (14:30)
[2021-01-16] MEDS: KETOROLAC 15 MG/ML 1 ML VIAL IVP SCH ×2 (16:23→20:50)
[2021-01-16] MEDS: DEXAMETHASONE SOD PHOSPHATE 4 MG/ML 1 ML VIAL IV SCH (16:24)
[2021-01-16] MEDS: CITALOPRAM HYDROBROMIDE 20 MG TAB PO SCH (20:49)
[2021-01-16] MEDS: traZODone HCL 50 MG TAB PO SCH (20:50)
[2021-01-17] MEDS: DEXAMETHASONE SOD PHOSPHATE 4 MG/ML 1 ML VIAL IV SCH (00:44)
[2021-01-17] MEDS: ENOXAPARIN 40 MG/0.4 ML SYRINGE SQ SCH ×2 (00:44→10:44)
[2021-01-17] MEDS: ACETAMINOPHEN IV (For NPO) 1,000 MG in EMPTY BAG 1 BAG IVPB SCH ×2 (00:45→05:13)
[2021-01-17] MEDS: 1: MVI, ADULT NO.4 WITH VIT K 10 ML, THIAMINE 100 MG, FOLIC ACID 1 MG, POTASSIUM CHLORID IV SCH ×6 (02:02)
[2021-01-17] MEDS: KETOROLAC 15 MG/ML 1 ML VIAL IVP SCH ×2 (03:45→10:44)
[2021-01-17] MEDS: SIMETHICONE 40 MG/0.6 ML DROPS 2,000 MG/30 ML BOTTLE PO PRN (05:13)
[2021-01-17] MEDS: ONDANSETRON 4 MG/2 ML VIAL IVP PRN (07:29)
[2021-01-17] MEDS: HYDROmorphone 1 MG/ML 1 ML SYRINGE IVP PRN (07:29)
[2021-01-17] MEDS: LACTATED RINGERS 1,000 ML IV SCH (07:45)
[2021-01-17] MEDS ORDERED: bisacodyL 5 MG TABLET.DR PO PRN (08:00)
[2021-01-17 08:08] VITALS: BP 153/93; PULSE 77; RESP 18; TEMP 98
[2021-01-17] MEDS: ALBUTEROL NEBULIZED 2.5 MG/3 ML INHALATION SCH ×2 (08:18→12:07)
[2021-01-17] MEDS: PANTOPRAZOLE 40 MG/10 ML VIAL IV SCH (09:40)
[2021-01-17 10:24] LABS: Basophils # (A) 0.02 X 10*3/uL (0.00-0.10); Basophils % (A) 0.2 %; Eosinophils # (A) 0 X 10*3/uL (0.04-0.35); Eosinophils % (A) 0 %; HCT 45.3 % (37.2-46.3); HGB 14.8 g/dL (12.0-15.0); Lymphocytes # (A) 0.96 X 10*3/uL (0.90-5.00); Lymphocytes % (A) 7.2 %; MCH 29.7 pg (27.0-32.0); MCHC 32.7 g/dL (32.0-37.0); Mean Platelet Volume 10.7 fL (9.5-12.2); Monocytes # (A) 0.32 X 10*3/uL (0.20-1.00); Monocytes % (A) 2.4 %; Neutrophils # (A) 11.92 X 10*3/uL (1.80-7.70); Neutrophils % (A) 89.7 %; Platelet Count 343 X 10*3/uL (140-440); RBC 4.98 X 10*6/uL (4.10-5.20); RDW 14.1 % (11.5-14.5); WBC 13.28 X 10*3/uL (4.50-10.00)
--- NOTE | 2021-01-17 12:32 | P.DS ---
Providers Date of admission: 01/15/21 08:38 Expected date of discharge: 01/17/21 Attending physician: Ishan Adams Consults: 01/15/21 12:48 Consult Physician Routine Consulting Provider: Danelle Gustafson Consult Reason/Comments: Medical management Do you want consulting provider notified?: Yes Primary care physician: Cat Colon [facility] Course: Discharge diagnosis 1. Morbid obesity status post laparoscopic sleeve gastrectomy Hospital course This is a 36-year-old female known history of morbid obesity. She is status post laparoscopic sleeve gastrectomy. She tolerated surgery well. Her upper GI showed no evidence of leak or obstruction. She is tolerating bariatric clear liquid diet. Her pain is controlled. She has been up and ambulating. Afebrile. She is stable for discharge. Please refer to chart for any further details. Physician Balance Wheel Motion Inspector note has been reviewed by physician. Signing provider agrees with the documented findings, assessment, and plan of care. Patient Condition at Discharge: Stable Plan - Discharge Summary Discharge Rx Participant: Yes New Discharge Prescriptions: New bisacodyL [Dulcolax] 5 mg PO DAILY PRN #10 tablet. PRN Reason: Constipation Simethicone 40 mg/0.6 ml Drops [Mylicon Drops] 40 mg PO PCHS PRN #30 ml PRN Reason: Gas Omeprazole [PriLOSEC] 40 mg PO DAILY #30 capsule. Ondansetron Odt [Zofran Odt] 4 mg PO Q8HR PRN #9 tab PRN Reason: Nausea traMADol HCl [Ultram] 50 mg PO Q6HR PRN 2 Days #6 tab PRN Reason: Pain Continue Citalopram Hydrobromide [CeleXA] 20 mg PO HS traZODone HCL 150 mg PO HS levonorgestreL [Mirena] 1 each IY DIRECTED Discontinued Cholecalciferol [Vitamin D3] 5,000 units PO DAILY Ibuprofen 600 mg PO BID Multivit with Calcium,Iron,Min [Women's Multivitamin] 1 each PO DAILY Magnesium Natural Vitality 83 mg PO DAILY Biotin 10,000 mcg PO DAILY Omeprazole 20 mg PO DIRECTED PRN PRN Reason: Heartburn Discharge Medication List traZODone HCL 150 mg PO HS 10/20/20 [History] Citalopram Hydrobromide [CeleXA] 20 mg PO HS 01/10/21 [History] levonorgestreL [Mirena] 1 each IY DIRECTED 01/10/21 [History] Omeprazole [PriLOSEC] 40 mg PO DAILY #30 capsule. 01/17/21 [Rx] Ondansetron Odt [Zofran Odt] 4 mg PO Q8HR PRN #9 tab 01/17/21 [Rx] Simethicone 40 mg/0.6 ml Drops [Mylicon Drops] 40 mg PO PCHS PRN #30 ml 01/17/21 [Rx] bisacodyL [Dulcolax] 5 mg PO DAILY PRN #10 tablet. 01/17/21 [Rx] traMADol HCl [Ultram] 50 mg PO Q6HR PRN 2 Days #6 tab 01/17/21 [Rx] [facility] [place] [facility] [place] [facility] Patient Instructions/Handouts: *Surgery [facility] - (Anesthesia) Discharge Instructions Outpatient Surgery, *Surgery [facility] - Scopalamine Patch Instructions Activity/Diet/Wound Care/Special Instructions: No driving while taking Ultram No lifting over 10 pounds You may shower. No soaking or tub baths for 2 weeks Very light activity until you are reevaluated at your follow up appointment with your surgeon No straws or carbonated beverages Hold on taking vitamins until seen by surgeon Patient to follow up with Caitlin bariatric nurse, on Friday Discharge Disposition: HOME SELF-CARE
--- NOTE | 2021-01-17 13:57 | P.PN ---
Subjective Progress Note Date: 01/17/21 Patient is a 36-year-old the female admitted for laparoscopic sleeve gastrectomy, I saw her postoperatively patient is in significant pain received Dilaudid and fentanyl for pain. Patient was bit nauseous as well. 01/16/2021 Patient is examined at the bedside today, resting in bed. She states she is having quite a bit of nausea. Zofran has been given this morning. She is requesting something additional for her nausea. Patient has completed her upper GI series, it was a limited study due to patient being able unable to swallow the barium related to her nausea. Patient has been advanced to a bariatric clear liquid diet via surgical services. Patient is receiving IV Tylenol for pain management, and addition to IV Dilaudid. Patient is receiving TPN. Vital signs are stable with morning including a temperature of 98.2. Heart rate of 83, blood pressure 161/93, and patient is 92% on room air. 01/17/2021 Patient is examined at the bedside today. She is postop day 2 from a laparoscopic sleeve gastrectomy. She is sitting on the edge of the bed. She states that she is getting ready to ambulate in the hallway. Patient states that her pain is much improved from yesterday. An she has been tolerating the bariatric clear liquid diet well. Patient states that she has yet to pass gas. It is increasing her activity level. She states that she is using her incentive spirometer. Patient is receiving IV Dilaudid for pain management. Vital signs are stable this morning patient remains afebrile. She denies any nausea vomiting, she reports mild abdominal incisional pain. She denies any chest pain cough or shortness of breath. ROS: Constitutional: Denied any fatigue denied any fever. Cardio vascular: denied any chest pain, palpitations Gastrointestinal denied any vomiting, reports nasuea Pulmonary: Denied any shortness of breath cough Neurologic denied any new focal deficits All inpatient medications were reviewed and appropriate changes in these medications as dictated in the interval history and assessment and plan. PHYSICAL EXAMINATION: GENERAL: The patient is alert and oriented x3, not in any acute distress. Well developed, well nourished. HEENT: Pupils are round and equally reacting to light. EOMI. No scleral icterus. No conjunctival pallor. Normocephalic, atraumatic. No pharyngeal erythema. No thyromegaly. CARDIOVASCULAR: S1 and S2 present. No murmurs, rubs, or gallops. PULMONARY: Chest is clear to auscultation, no wheezing or crackles. ABDOMEN: Soft, nontender, nondistended, normoactive bowel sounds. No palpable organomegaly. MUSCULOSKELETAL: No joint swelling or deformity. EXTREMITIES: No cyanosis, clubbing, or pedal edema. NEUROLOGICAL: Gross neurological examination did not reveal any focal deficits. SKIN: No rashes. Assessment and plan - obesity, BMI 41.2. status post op day 2 laparoscopic sleeve gastrectomy, zak ent will be closely monitored, Pain is expected to improve. Patient is receiving Zofran, and Mylicon drops for the gas.. Patient has been advanced to a bariatric clear diet. -Gastrointestinal reflux disease, patient will continue on IV Protonix -Depression for which patient is on citalopram patient was started on this medication whenever she can tolerate by mouth medications. -Patient will continue to use incentive spirometer and increase activity. DVT prophylaxis: Patient is on Lovenox Objective - Vital Signs Vital signs: Vital Signs Temp 98 F 01/17/21 08:07 Pulse 77 01/17/21 08:07 Resp 18 01/17/21 08:07 BP 153/93 01/17/21 08:07 Pulse Ox 94 L 01/17/21 08:07 Intake & Output 01/16/21 01/17/21 01/17/21 18:59 06:59 18:59 Intake Total 1021.2 Balance 1021.2 Weight 130.3 kg Intake: Intake, IV Titration 1021.2 Amount Mvi, Adult No.4 with Vit 1021.2 K 10 ml Thiamine 100 mg Folic Acid 1 mg Potassium Chloride 20 meq In Sodium Chloride 0.9% 1, 000 ml @ 100 mls/hr IV . BY DURATION LORENA Rx#: [id number] Other: Voiding Method Toilet Toilet # Voids 6 1 - Labs CBC & Chem 7: 01/17/21 05:17 01/16/21 06:43 Labs: Abnormal Lab Results - Last 24 Hours (Table) 01/17/21 Range/Units 05:17 WBC 13.28 H (4.50-10.00) X 10*3/uL Immature Gran # 0.06 H (0.00-0.04) X 10*3/uL Neutrophils # 11.92 H (1.80-7.70) X 10*3/uL Eosinophils # 0 L (0.04-0.35) X 10*3/uL
== END 2021-01-17 14:35 | disposition home or self-care (01) | DRG 621 ==
LOC: 2ORMAIN 08:38 → 4SSUR 18:43
PROVIDERS: ADMIT Surgery; ATTEND Surgery
PROC: 0DB64Z3 Excision of Stomach, Percutaneous Endoscopic Approach, Vertical (ICD-10-PCS; principal; 2021-01-15 10:45)
DX: E66.01 Morbid (severe) obesity due to excess calories (principal); F32.9 Major depressive disorder, single episode, unspecified; Z68.41 Body mass index [BMI] 40.0-44.9, adult; K21.9 Gastro-esophageal reflux disease without esophagitis; K44.9 Diaphragmatic hernia without obstruction or gangrene; K29.70 Gastritis, unspecified, without bleeding; M16.0 Bilateral primary osteoarthritis of hip; Z79.1 Long term (current) use of non-steroidal anti-inflammatories (NSAID); Z79.3 Long term (current) use of hormonal contraceptives; Z79.899 Other long term (current) drug therapy; Z90.49 Acquired absence of other specified parts of digestive tract; Z87.19 Personal history of other diseases of the digestive system; Z98.890 Other specified postprocedural states; Z71.3 Dietary counseling and surveillance; Z98.891 History of uterine scar from previous surgery; Z88.6 Allergy status to analgesic agent; Z88.5 Allergy status to narcotic agent; Z91.048 Other nonmedicinal substance allergy status
CPT/HCPCS: 74240; 80051; 81025; 82310; 82565; 83735; 84100; 84520; 85025; 88307; 94760; 94762

== ENCOUNTER → 2021-01-19 | Outpatient (CLI) | payer BC ==
[2021-01-19 10:36] VITALS: BP 101/64; PULSE 73; TEMP 98; BMI 40.6
== END ==
LOC: BARWHC3 09:59
PROVIDERS: ATTEND Surgery
DX: E66.01 Morbid (severe) obesity due to excess calories (principal); Z68.41 Body mass index [BMI] 40.0-44.9, adult; Z98.84 Bariatric surgery status
CPT/HCPCS: 99211

== ENCOUNTER → 2021-01-23 | Outpatient (CLI) | payer BC ==
[2021-01-23 12:42] VITALS: BP 111/73; PULSE 67; RESP 16; TEMP 97.8; BMI 39.7
--- NOTE | 2021-01-23 14:44 | P.BASOAP ---
Subjective Progress Note Date: 01/23/21 Principal diagnosis: Morbid obesity Patient returns for 1 week recheck. On 1 sleeve gastrectomy 8 days ago. The patient says she is doing well. She had a few episodes of dizziness when bending over. Thinks she is taking in enough liquids. No significant pain. No nausea or vomiting. No heartburn. Objective - Vital Signs Vital signs: Vital Signs Temp 97.8 F 01/23/21 12:39 Pulse 67 01/23/21 12:39 Resp 16 01/23/21 12:39 BP 111/73 01/23/21 12:39 Pulse Ox Intake & Output 01/22/21 01/23/21 01/23/21 18:59 06:59 18:59 Weight 125.645 kg - Exam Abdomen: Soft, nondistended, incisions clean and dry Assessment/Plan (1) Morbid obesity with BMI of 40.0-44.9, adult Narrative/Plan: Patient overall doing well one week after surgery. Continue bariatric liquids. Plan recheck 2 weeks. Plan: Date: 01/23/21 Initial Weight: 139.706 kg Initial BMI: 44.1 Current Weight: 125.645 kg Current BMI: 39.7 Type of Surgery: Total Volume in Band: Previous Volume: Volume Removed: Volume Added: Band Size:
== END ==
LOC: BARWHC3 12:27
PROVIDERS: ATTEND Surgery
DX: E66.01 Morbid (severe) obesity due to excess calories (principal); Z71.3 Dietary counseling and surveillance; Z68.41 Body mass index [BMI] 40.0-44.9, adult; Z98.84 Bariatric surgery status; Z88.6 Allergy status to analgesic agent; Z88.5 Allergy status to narcotic agent; Z91.09 Other allergy status, other than to drugs and biological substances
CPT/HCPCS: 97803; 99211

== ENCOUNTER → 2021-01-25 | Outpatient (CLI) | payer BC ==
[2021-01-25] MEDS: SODIUM CHLORIDE 0.9% 1,000 ML IV SCH ×2 (11:40→12:42)
[2021-01-25 11:49] VITALS: BP 102/59; PULSE 68; RESP 16; TEMP 97.8
== END ==
LOC: PROCWHC3 10:54
PROVIDERS: ATTEND Surgery Plastic and Reconstructive Surgery
DX: E86.0 Dehydration (principal)
CPT/HCPCS: 96360; 96361

== ENCOUNTER → 2021-02-06 | Outpatient (CLI) | payer BC ==
[2021-02-06 14:48] VITALS: BP 117/82; PULSE 69; RESP 18; TEMP 97.8; BMI 39.1
--- NOTE | 2021-02-06 15:32 | P.BASOAP ---
Subjective Progress Note Date: 02/06/21 Principal diagnosis: Morbid obesity Patient returns for recheck. Last seen 01/23. Underwent sleeve gastrectomy 01/15. Dizzy episodes are improved. No nausea or vomiting. She has lost 5 pounds. No heartburn. Remains on antiacids. No pain. Objective - Vital Signs Vital signs: Vital Signs Temp 97.8 F 02/06/21 14:43 Pulse 69 02/06/21 14:43 Resp 18 02/06/21 14:43 BP 117/82 02/06/21 14:43 Pulse Ox Intake & Output 02/05/21 02/06/21 02/06/21 18:59 06:59 18:59 Weight 123.649 kg - Exam Abdomen: Soft, nontender, nondistended Assessment/Plan (1) Morbid obesity with BMI of 40.0-44.9, adult Narrative/Plan: Patient doing well at this time. Continue monitoring liquid and protein intake. May resume normal activities. Continue antiacids. Will order one month labs for next week. Follow up one month. Plan: Date: 02/06/21 Initial Weight: 139.706 kg Initial BMI: 44.1 Current Weight: 123.649 kg Current BMI: 39.1 Type of Surgery: Total Volume in Band: Previous Volume: Volume Removed: Volume Added: Band Size:
== END ==
LOC: BARWHC3 14:32
PROVIDERS: ATTEND Surgery
DX: E66.01 Morbid (severe) obesity due to excess calories (principal); Z68.39 Body mass index [BMI] 39.0-39.9, adult; Z88.6 Allergy status to analgesic agent; Z88.5 Allergy status to narcotic agent; Z91.048 Other nonmedicinal substance allergy status
CPT/HCPCS: 97803; 99211

== ENCOUNTER → 2021-03-20 | Outpatient (CLI) | payer BC ==
[2021-03-20 14:03] VITALS: BP 111/77; PULSE 64; RESP 16; TEMP 98; BMI 36.1
--- NOTE | 2021-03-20 14:18 | P.BASOAP ---
Subjective Progress Note Date: 03/20/21 Principal diagnosis: Morbid obesity Patient returns for recheck. She was last seen 02/06. Surgery was performed 01/15. Has had some dysphagia to chicken at times. She does fine with ground meat and fish. She has lost 20 pounds since her last visit. She has been fatigued. No heartburn symptoms. Remains on omeprazole. Had labs performed 02/16. These looked normal. Objective - Vital Signs Vital signs: Vital Signs Temp 98 F 03/20/21 13:59 Pulse 64 03/20/21 13:59 Resp 16 03/20/21 13:59 BP 111/77 03/20/21 13:59 Pulse Ox Intake & Output 03/19/21 03/20/21 03/20/21 18:59 06:59 18:59 Weight 114.305 kg - Exam Abdomen: Soft, nontender, nondistended Assessment/Plan (1) Morbid obesity with BMI of 40.0-44.9, adult Narrative/Plan: Patient doing well at this time. Continue dietary and exercise regimen. Follow-up 4-6 weeks. Check 3 months labs at that time. Continue omeprazole for now. Plan: Date: 03/20/21 Initial Weight: 139.706 kg Initial BMI: 44.1 Current Weight: 114.305 kg Current BMI: 36.1 Type of Surgery: Total Volume in Band: Previous Volume: Volume Removed: Volume Added: Band Size:
== END ==
LOC: BARWHC3 13:48
PROVIDERS: ATTEND Surgery
DX: E66.01 Morbid (severe) obesity due to excess calories (principal); Z68.36 Body mass index [BMI] 36.0-36.9, adult; Z88.5 Allergy status to narcotic agent; Z88.6 Allergy status to analgesic agent; Z91.048 Other nonmedicinal substance allergy status
CPT/HCPCS: 99211

== ENCOUNTER → 2021-04-24 | Outpatient (CLI) | payer BC ==
[2021-04-24 14:14] VITALS: BP 125/82; PULSE 78; TEMP 98.2; BMI 33.8
--- NOTE | 2021-04-24 14:21 | P.BASOAP ---
Subjective Progress Note Date: 04/24/21 Principal diagnosis: Morbid obesity Patient returns for reevaluation. Doing fairly well since her last visit. She did have her first episode of vomiting yesterday after eating chicken and rice. No other issues. No heartburn. Taking her antiacids twice daily. She has lost 16 pounds since her last visit. She has been creating some sweets recently but doing better. She is due for 3 month labs. She has increased stress because she is selling her home and buying a new home. Objective - Vital Signs Vital signs: Vital Signs Temp 98.2 F 04/24/21 14:03 Pulse 78 04/24/21 14:03 Resp BP 125/82 04/24/21 14:03 Pulse Ox Intake & Output 04/23/21 04/24/21 04/24/21 18:59 06:59 18:59 Weight 107.048 kg - Exam Abdomen: Soft, nontender, nondistended Assessment/Plan (1) Morbid obesity with BMI of 40.0-44.9, adult Narrative/Plan: Patient doing well today. Check three-month labs. Decrease antiacids to once daily. Follow-up 4-6 weeks. Plan: Date: 04/24/21 Initial Weight: 139.706 kg Initial BMI: 44.1 Current Weight: 107.048 kg Current BMI: 33.8 Type of Surgery: Total Volume in Band: Previous Volume: Volume Removed: Volume Added: Band Size:
== END ==
LOC: BARWHC3 13:49
PROVIDERS: ATTEND Surgery
DX: E66.01 Morbid (severe) obesity due to excess calories (principal); Z68.33 Body mass index [BMI] 33.0-33.9, adult; Z88.6 Allergy status to analgesic agent; Z88.5 Allergy status to narcotic agent; Z91.048 Other nonmedicinal substance allergy status
CPT/HCPCS: 99211

== ENCOUNTER → 2021-05-22 | Outpatient (CLI) | payer BC | END | disposition home or self-care (01) | LOC: LABMAIN 16:45 | PROVIDERS: ATTEND Surgery | DX: Z53.9 Procedure and treatment not carried out, unspecified reason (principal) ==

== ENCOUNTER → 2021-05-29 | Outpatient (CLI) | payer BC ==
[2021-05-29 13:25] VITALS: BP 102/68; PULSE 71; TEMP 97.8; BMI 32.7
--- NOTE | 2021-05-29 13:34 | P.BASOAP ---
Subjective Progress Note Date: 05/29/21 Principal diagnosis: Morbid obesity Patient returns for recheck. Since her last visit she has had no further episodes of nausea and vomiting. No heartburn symptoms taking her antiacids once daily. Patient has had some dizziness episodes when getting up from a seated position while at work. She has checked her blood pressure notices systolic blood pressures in the 80s to 90s and systolic blood pressures in the 40s to 50s. Patient says her symptoms shortly resolved. She is drinking enough liquids. No pain. Labs checked last visit demonstrate a mild leukocytosis and a level of 40. She states she missed her iron infusion last month. Objective - Vital Signs Vital signs: Vital Signs Temp 97.8 F 05/29/21 13:17 Pulse 71 05/29/21 13:17 Resp BP 102/68 05/29/21 13:17 Pulse Ox Intake & Output 05/28/21 05/29/21 05/29/21 18:59 06:59 18:59 Weight 103.419 kg - Exam Abdomen: Soft, nontender, nondistended Assessment/Plan (1) Morbid obesity with BMI of 40.0-44.9, adult Narrative/Plan: Patient doing well at this time. Recommend that she talk to her primary care physician regarding her orthostatic hypotension. Increase hydration. Increase exercise level. Continue antiacids daily. Follow-up 6 weeks. We'll check labs at that time. 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 Plan: Date: 05/29/21 Initial Weight: 139.706 kg Initial BMI: 44.1 Current Weight: 103.419 kg Current BMI: 32.7 Type of Surgery: Total Volume in Band: Previous Volume: Volume Removed: Volume Added: Band Size:
== END ==
LOC: BARWHC3 12:52
PROVIDERS: ATTEND Surgery
DX: E66.01 Morbid (severe) obesity due to excess calories (principal); Z68.32 Body mass index [BMI] 32.0-32.9, adult; Z88.6 Allergy status to analgesic agent; Z88.5 Allergy status to narcotic agent; Z91.09 Other allergy status, other than to drugs and biological substances
CPT/HCPCS: 99211

== ENCOUNTER → 2021-07-10 | Outpatient (CLI) | payer BC ==
[2021-07-10 13:10] VITALS: BP 118/76; PULSE 66; RESP 16; TEMP 97.7; BMI 31.4
--- NOTE | 2021-07-10 13:34 | P.BASOAP ---
Subjective Progress Note Date: 07/10/21 Principal diagnosis: Morbid obesity Patient returns for reevaluation. Sleeve gastrectomy performed 01/15. Dizziness episodes have resolved. She is now taking her antiacids every other day without heartburn symptoms. No pain. No nausea or vomiting. Patient recently moved and she is quite busy. Objective - Vital Signs Vital signs: Vital Signs Temp 97.7 F 07/10/21 13:08 Pulse 66 07/10/21 13:08 Resp 16 07/10/21 13:08 BP 118/76 07/10/21 13:08 Pulse Ox Intake & Output 07/09/21 07/10/21 07/10/21 18:59 06:59 18:59 Weight 99.337 kg - Exam Abdomen: Soft, nontender, nondistended Assessment/Plan (1) Morbid obesity with BMI of 40.0-44.9, adult Narrative/Plan: Patient doing well at this time. Continue every other day antiacid therapy. Recheck labs next visit. Continue exercise and dietary program. Plan: Date: 07/10/21 Initial Weight: 139.706 kg Initial BMI: 44.1 Current Weight: 99.337 kg Current BMI: 31.4 Type of Surgery: Total Volume in Band: Previous Volume: Volume Removed: Volume Added: Band Size:
== END ==
LOC: BARWHC3 13:01
PROVIDERS: ATTEND Surgery
DX: E66.01 Morbid (severe) obesity due to excess calories (principal); Z68.31 Body mass index [BMI] 31.0-31.9, adult; Z88.6 Allergy status to analgesic agent; Z88.5 Allergy status to narcotic agent; Z91.09 Other allergy status, other than to drugs and biological substances
CPT/HCPCS: 99211

== ENCOUNTER → 2021-11-02 | Outpatient (CLI) | payer BC | END | disposition home or self-care (01) | LOC: LABPAT 15:56 | PROVIDERS: ATTEND Surgery | DX: Z53.9 Procedure and treatment not carried out, unspecified reason (principal) ==

== ENCOUNTER → 2021-12-25 | Outpatient (CLI) | payer BC ==
[2021-12-25 13:48] VITALS: BP 103/66; PULSE 65; RESP 16; TEMP 98.5; BMI 29.1
--- NOTE | 2021-12-25 14:02 | P.BASOAP ---
Subjective Progress Note Date: 12/25/21 Principal diagnosis: Morbid obesity patient returns for recheck. She was last seen in October. Unfortunately her her father who has MDS had a recent stroke. Doing better now. Patient has not been focusing on her own health as much. She has only lost 1 pound since her last visit. She has back to doing shakes for breakfast. No GERD, no vomiting. Objective - Vital Signs Vital signs: Vital Signs Temp 98.5 F 12/25/21 13:47 Pulse 65 12/25/21 13:47 Resp 16 12/25/21 13:47 BP 103/66 12/25/21 13:47 Pulse Ox FiO2 Intake & Output 12/24/21 12/25/21 12/25/21 18:59 06:59 18:59 Weight 92.079 kg - Exam Abdomen: Soft, nontender, nondistended Assessment/Plan (1) Morbid obesity with BMI of 40.0-44.9, adult Narrative/Plan: Continue dietary and exercise regimen. Plan recheck 2 months. We'll check annual labs at that time. Plan: Date: 12/25/21 Initial Weight: 139.706 kg Initial BMI: 44.1 Current Weight: 92.079 kg Current BMI: 29.1 Type of Surgery: Total Volume in Band: Previous Volume: Volume Removed: Volume Added: Band Size:
== END ==
LOC: BARWHC3 13:25
PROVIDERS: ATTEND Surgery
DX: E66.01 Morbid (severe) obesity due to excess calories (principal); Z68.29 Body mass index [BMI] 29.0-29.9, adult; Z88.6 Allergy status to analgesic agent; Z88.5 Allergy status to narcotic agent; Z91.09 Other allergy status, other than to drugs and biological substances
CPT/HCPCS: 99211

== ENCOUNTER → 2022-04-23 | Outpatient (CLI) | payer BC ==
[2022-04-23 12:53] VITALS: BP 122/80; PULSE 67; RESP 16; TEMP 97.9; BMI 29.8
--- NOTE | 2022-04-23 22:25 | P.BASOAP ---
Subjective Progress Note Date: 04/23/22 Principal diagnosis: Morbid obesity Patient returns for recheck. Last seen in December. Still having a lot of stress at home with his father being ill. They recently stopped his cancer treatment. She has gained 5 pounds. No longer taking antiacids. She is due for annual lab work. Objective - Vital Signs Vital signs: Vital Signs Temp 97.9 F 04/23/22 12:50 Pulse 67 04/23/22 12:50 Resp 16 04/23/22 12:50 BP 122/80 04/23/22 12:50 Pulse Ox FiO2 Intake & Output 04/23/22 04/23/22 04/24/22 06:59 18:59 06:59 Weight 94.347 kg - Exam Abdomen: Soft, nontender, nondistended Assessment/Plan (1) Morbid obesity with BMI of 40.0-44.9, adult Narrative/Plan: Patient doing well at this time. Check annual lab work. Continue dietary and exercise regimen. Recheck 3 months. Plan: Date: 04/23/22 Initial Weight: 139.706 kg Initial BMI: 44.1 Current Weight: 94.347 kg Current BMI: 29.8 Type of Surgery: Vertical Sleeve Gastrectomy Total Volume in Band: Previous Volume: Volume Removed: Volume Added: Band Size:
== END ==
LOC: BARWHC3 12:40
PROVIDERS: ATTEND Surgery
DX: E66.01 Morbid (severe) obesity due to excess calories (principal); Z68.29 Body mass index [BMI] 29.0-29.9, adult; Z88.5 Allergy status to narcotic agent; Z88.8 Allergy status to other drugs, medicaments and biological substances; Z91.048 Other nonmedicinal substance allergy status; K21.9 Gastro-esophageal reflux disease without esophagitis
CPT/HCPCS: 99211

== ENCOUNTER → 2022-07-01 | Outpatient (CLI) | payer BC ==
[2022-07-01 17:59] LABS: HCT 43.3 % (37.2-46.3); HGB 13.9 g/dL (12.0-15.0); MCHC 32.1 g/dL (32.0-37.0); MCV 93.5 fL (80.0-97.0); Mean Platelet Volume 9.7 fL (9.5-12.2); NRBC Per 100 WBC 0 /100 WBCS (0.0-0.0); Platelet Count 248 X 10*3/uL (140-440); RBC 4.63 X 10*6/uL (4.10-5.20); RDW 12.3 % (11.5-14.5); WBC 10.08 X 10*3/uL (4.50-10.00)
[2022-07-01 18:15] LABS: African American GFR (CKD) 94.7 (60.0-200.0); Albumin 4.4 g/dL (3.8-4.9); Albumin/Globulin Ratio 2.1 (1.60-3.17); Anion Gap 10.8 mmol/L (10.00-18.00); Blood Urea Nitrogen 14.4 mg/dL (9.0-27.0); Calcium 9.4 mg/dL (8.7-10.3); Carbon Dioxide 26.2 mmol/L (20.0-27.5); Globulin 2.1 g/dL (1.6-3.3); Non-African American GFR(CKD) 81.7 (60.0-200.0); Potassium 4.5 mmol/L (3.5-5.5); Total Bilirubin 0.4 mg/dL (0.30-1.20); Total Protein 6.5 g/dL (6.2-8.2)
== END ==
LOC: LABWHC1 10:47
PROVIDERS: ATTEND Surgery
DX: E66.01 Morbid (severe) obesity due to excess calories (principal); K90.89 Other intestinal malabsorption; E55.9 Vitamin D deficiency, unspecified
CPT/HCPCS: 36415; 80053; 82306; 82607; 82746; 83540; 84425; 85027

== ENCOUNTER → 2023-05-13 | Outpatient (CLI) | payer BC ==
--- NOTE | 2023-05-14 09:14 | CT ---
EXAMINATION TYPE: CT lumbar spine wo con DATE OF EXAM: 05/13/2023 5:38 PM COMPARISON: None HISTORY: Presurgical planning- fusion for L5, chronic lower back pain CT DLP: 1056.9 mGycm Automated exposure control for dose reduction was used. Unenhanced CT of the lumbar spine was performed. Bone and soft tissue window settings are submitted as well as coronal and sagittal reconstructions. Metallic densities seen within the left lobe liver. Correlate for prior cholecystectomy. There is thi ckening subtle nodularity to the adrenal glands to small to characterize. Aorta caliber. Assessment spinal canal limited due to resolution. Mild hypertrophic change of the SI joint. Hypodensity upper pole left kidney indeterminate by noncontrast technique. L1-L2: Normal disc space height. No disc herniation protrusion or central stenosis. No facet joint arthropathy. No evidence for foraminal encroachment. L2-L3: Normal disc space height. No disc herniation protrusion or central stenosis. Mild circumferen tial disc bulging. No facet joint arthropathy. No evidence for foraminal encroachment. L3-L4: Mild circumferential disc bulging but no disc herniation, canal stenosis, or foraminal L4-L5: Normal disc space height. No disc herniation protrusion or central stenosis. No facet joint arthropathy. No evidence for foraminal encroachment. L5-S1: Vacuum disc compatible with severe degenerative disc disease. Bilateral spondylolysis of L5. M inimal anterolisthesis. Broad-based posterior disc bulging greater laterally to the left but no focal herniation. There is a moderate left-sided foraminal encroachment. IMPRESSION: 1. At L5-S1 there is bilateral spondylolysis of L5 minimal anterolisthesis. Broad-based disc bulging greater laterally left with moderate left foraminal encroachment. Recommend follow-up MRI.
== END | disposition home or self-care (01) ==
LOC: RADCTMAIN 17:23
PROVIDERS: ATTEND Orthopaedic Surgery
DX: Z01.818 Encounter for other preprocedural examination (principal); M43.17 Spondylolisthesis, lumbosacral region; M47.817 Spondylosis without myelopathy or radiculopathy, lumbosacral region; M51.27 Other intervertebral disc displacement, lumbosacral region
CPT/HCPCS: 72131

== ENCOUNTER → 2023-06-26 | Outpatient (CLI) | payer BC | END | disposition home or self-care (01) | LOC: LABPAT 10:48 | PROVIDERS: ATTEND Orthopaedic Surgery | DX: Z01.812 Encounter for preprocedural laboratory examination (principal); M43.07 Spondylolysis, lumbosacral region; M54.12 Radiculopathy, cervical region; Z22.322 Carrier or suspected carrier of Methicillin resistant Staphylococcus aureus | CPT/HCPCS: 86850; 86900; 86901; 87070 ==

== ENCOUNTER 2023-07-04 11:35 | Day surgery (SDC) | payer BC ==
[2023-06-26 16:37] VITALS: BMI 32.3
--- NOTE | 2023-07-04 08:12 | P.HPOR ---
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 I reviewed the patient's clinical syndrome, physical findings, and imaging studies during the appointment today. It is my impression that the patient has a diagnosis of. 1. L5-S1 spondylolysis 2. Grade II spondylolisthesis of L5 on S1, unstable 3. Left lower extremity radiculopathy 4. Left lower extremity weakness 5. Low back pain I outlined the natural course history without intervention and various interventional options. Spine Surgery Risk Review Ms. Aguilar is presenting for evaluation of low back and bilateral lower extremity pain, left lower extremity numbness, tingling, and weakness. It was my pleasure to have seen and examined Ms. Aguilar. In our visit today we have had a chance to go over subjective complaints, physical examination findings and treatments including the natural course history without intervention and various interventional options. The patients imaging demonstrates: X-Rays of the Lumbar Spine taken in office on 04/18/2023; 5 views (AP, lateral flexion, & extension) reviewed by Dr. Connolly and demonstrate: L5-S1 spondylolysis with b/l pars defects at L5 causing Grade II spondylolisthesis that is mobile on F/E films. Pseudoarticulation has formed between S1 SAP and Pars of L5 which is unstable. Spondylosis at L5-S1 with near complete disc height loss. Flattened LL due to the collapse and the listhesis. Remaining features of the lumbar spine remain age appropriate with minimal disc height loss or fracture. No lesions. AP Pelvis: No lesions, no fractures. Level pelvis. MRI of Lumbar Spine [facility]: Redemonstration of the GII spondylolyisthesis of L5-S1 due to b/l pars defects and spondylolysis of L5-S1. No acute fractures noted. b/l foraminal stenosis that is moderate due to slip and disc bulge as well as ligamental hypertrophy and surrounding structures. No lesions noted. On physical exam, Ms. Aguilar demonstrates: A throbbing, pressure-like pain throughout the low back that radiates down into the bilateral buttock, hips, and lower extremities with a sharp, shooting quality. The patient states that her left leg symptoms are much more severe than the right at this time. The patient notes that her left leg pain is associated with numbness, tingling, and increased weakness. The patient states that her symptoms are exacerbated by prolonged activity, which makes it very difficult for her to complete many of her regular activities of daily living. The patient reports experiencing moderate to severe sleep disturbances related to her ongoing pain and associated symptoms. I have explained to the patient that as their condition progresses it will cause further neurological deficits and eventual paralysis. Based on the patients imaging, physical exam, and the rapid progression and disabling nature of their symptoms, at this time I recommend surgery in the form of a: Left L5-S1 Minimally invasive lumbar fusion with possible L4-S1 fusion. I discussed the risk and benefits of this procedure at length with Ms. Aguilar. The patient greed to considered pursuing the procedure above mentioned. Prior to surgery, she should follow up with her PCP (Cardio, ID, IM etc) for clearance. Questions were invited and answered, and the patient wishes to proceed as outlined below. Currently, I am recommendin.Left L5-S1 Minimally invasive lumbar fusion with possible L4-S1 fusion due to pedicular atrophy 2.Review of surgical risks and benefits as well as an educational packet on the proposed surgical procedure. Risks: All surgical procedures come with inherent risks, including those related to positioning, anesthesia, intraoperative findings, and postoperative complications. It is important to understand that surgery does not come with any guarantee of a successful outcome as complications and adverse events are always possible. The patient was given a handout in office today discussing the surgical proced ure and risks associated with the intervention, both of which were discussed with the patient. These risks include but are not limited to the following: * Experiencing same, different or even worse symptoms in back, neck, arms, or legs compared to before surgery. Requiring further surgery or other forms of treatment presently or at some time in the future at same or other levels of the intended spine surgery. On an extreme but fortunately relatively rare basis severe complication such as blindness, stroke, heart attack, temporary and/or permanent nerve injury, paralysis, coma, or may occur, sometimes without known explanation. Surgical complications may include but are not limited to risk of infection, fluid accumulation in the surgical dissection site, including a seroma or hemato ma, that requires additional surgery, wound drainage, bleeding, new numbness or weakness, vision changes/loss, spinal fluid leakage, non-healing and/or infected incision, headaches, difficulty or inability to swallow, hoarseness, hemopneumothorax, pneumothorax, impotence, retrograde ejaculation, vaginal dryness; injury to nerves, spinal cord, blood vessels, lymphatics or other vital organs (i.e., bowel injury, injury to the great vessels); heterotopic bone formation; complications related to the hardware such as screws, rods, cages including misplaced hardware, device failure, instrumentation at the wrong spine level, hardware fracture/breakage, or hardware loosening; vertebral failure of the spinal column above or below the newly placed hardware; retained surgical instrumentations or devices and the need for further surgery. * Medical risks of the planned spine surgery include but are not limited to generalized Infections to the whole body or local areas outside of the surgical site (sepsis), heart attack, bleeding, anaphylaxis, meningitis, seizure, epilepsy, hearing loss, burn leone, laceration of the head or other areas of the body, bruising, hypersensitivity of the skin, bladder over distension; allergic reaction; shoulder injury related to positioning; fat, blood and air clots to other areas of the body like heart, lungs, brain; failure of internal organs such as lungs, kidneys, liver and excessive bleeding. If blood transfusions are necessary, note that transfusions may cause intolerance reactions such as anaphylaxis or other complex reactions. Despite best efforts, the results of spine surgery might not heal in terms of bone, soft tissues such as skin, fascia, ligaments, and joints. Additionally, in order to achieve best possible results, spine surgery may be carried out beyond the initially planned levels and involve decompression, fusion including insertion of hardware at levels other than the original intended area of surgical interest change some portions of the procedure in order to ensure the best possible outcomes. With spine surgery and spinal fusion, there are different off label uses of instrumentation (devices, implants and hardware) as well as biological substances (bone morphogenic proteins, demineralized bone matrix) as well as using extra bone from allograft sources (i.e. cadaver bone) or autograft (iliac crest bone, ribs, or the spine itself). The patient has been given information about these practices and their inherent risks and benefits. [facility] is an educational center that serves as a training facility for neurosurgical and orthopedic TWISTER TENDER and Nursing students. Physician assistants are medically trained surgical providers who function in the outpatient, inpatient, and operating room setting under the direct supervision of the attending surgeon. [facility] has multiple operating rooms with single and overlapping rooms running daily. They currently function under the required guidelines as produced by the [facility] Finance Committee with regards to the overlapping rooms and will continue to comply with changes to this policy as they occur. The requirements include and are complied with as follows: (1) the critical portions of the overlapping rooms will not occur at the same time, (2) the attending physician will be physically present during the critical portions of the procedure and immediately available during the entire case, and (3) a back-up attending is designated should the primary attending not be immediately available. The patient has had a chance to review all the listed information, has been given print outs detailing this information, and has had all his/her questions answered to their satisfaction. It was my pleasure to have seen and examined Ms. Aguilar. In our visit today we have had a chance to go over my understanding of our patient's current condition, the natural course history without intervention and various interventional options. Questions were invited and answered, and the patient wishes to proceed as outlined above. I have seen and examined the patient for 25 minutes and we have spent more than 50% of the time in repeat and detailed counseling about the patient's condition, its natural course history with out and as much as can be predicted with surgery and re-review of various surgical treatment options. In conclusion, Ms. Aguilar requested we proceed with the above suggested surgery and are willing to accept risks and limitations of the suggested surgery as nature of the disease process and our best attempts at treatment for the condition. Thank you again for allowing us to be part of your patient's care. Please don't hesitate to contact me if you have any further questions. Follow-up: Post procedure Patient Education: (Informational booklet, instructions, etc) given at today's appointment: Yes .ED:Patient Education: Y Medications Reviewed: YES In our visit today Ms. Aguilar and I have had a chance to go over my u nderstanding of the patient's current condition, the natural course history without intervention and various interventional options. Questions were invited and answered, and the patient wishes to proceed as outlined above. I will be sure to keep you updated afterMsNorman Aguilar returns here for further follow-up. Thank you again for your referral. Please do not hesitate to contact me if you have any further questions. Signed and authenticated by: Candelario Ndiaye Brook [facility] Complex and Minimally Invasive Spine Surgery [address] [place], [place] [address] [place] [id number] This message is confidential, intended only for the named recipient(s) and may contain information that is privileged or exempt from disclosure under applicable law. If you are not the intended recipient(s), you are notified that the dissemination, distribution or copying of this information is strictly prohibited. If you received this message in error, please notify the sender then delete this message. Patient verbalizes understanding of the information discussed. The above note was initiated by Cesia Baker, physician recording bacteriology research assistant for Dr. Candelario Connolly. This note has been reviewed by Dr. Connolly, who has made his personal changes and impressions for this document. CC: Cat Colon NP # SIGNED BY Candelario Connolly ([facility])06/29/2023 04:51PM Past Medical History Past Medical History: No Reported History Additional Past Medical History / Comment(s): chronic lower back radiating down left leg History of Any Multi-Drug Resistant Organisms: None Reported Past Surgical History: Bariatric Surgery, Section, Cholecystectomy Additional Past Surgical History / Comment(s): EGD. PAIN CLINIC NERVE BLOCKS.SLEEVE GASTRECTOMY 01-15-21. cyst removed off buttocks Past Anesthesia/Blood Transfusion Reactions: Family History of Problems w/ Anesthesia, Motion Sickness, Postoperative Nausea & Vomiting (PONV) Additional Past Anesthesia/Blood Transfusion Reaction / Comment(s): "I wake up confused and want to get right up",. no hx blood transfusion. dad has hard time coming out of anesthesia-confused Smoking Status: Never smoker - Past Family History Mother Family Medical History: No Reported History Father Family Medical History: Cancer Additional Family Medical History / Comment(s): leukemia Medications and Allergies Home Medications Medication Instructions Recorded Confirmed Type traZODone HCL 150 mg PO HS 10/20/20 06/26/23 History Citalopram Hydrobromide [CeleXA] 20 mg PO HS 01/10/21 06/26/23 History levonorgestreL [Mirena] 1 each IY DIRECTED 01/10/21 06/26/23 History ALPRAZolam [Xanax] 0.25 mg PO BID PRN 09/18/21 06/26/23 History Multivit with Calcium,Iron,Min 1 each PO DAILY 06/26/23 06/26/23 History [Women's Multivitamin] Allergies Allergy/AdvReac Type Severity Reaction Status Date / Time bubble bath Allergy Rash/Hives Uncoded 06/26/23 16:18 perfume Allergy Rash/Hives Uncoded 06/26/23 16:18 Physical Examination Osteopathic Statement: *. No significant issues noted on an osteopathic structural exam other than those noted in the History and Physical/Consult.
[~2023-07-04 11:35] MED LIST changes: -DEXAMETHASONE SOD PHOSPHATE 4 MG/ML 1 ML VIAL IV ONE; -ENOXAPARIN 40 MG/0.4 ML SYRINGE SQ PRN; +LIDOCAINE 1% (10MG/ML) FOR IV START INTRADERMA PRN; -MIDAZOLAM 2 MG/2 ML VIAL IV PRN; -ONDANSETRON 4 MG/2 ML VIAL IVP ONE; -SCOPOLAMINE 1.5MG/72HR PATCH TRANSDERM ONE; +TRANEXAMIC 1,000 MG/100ML-NACL 1,000 MG in SALINE 1 100ML.BAG IVPB PRN; -ceFAZolin 3 GM in SODIUM CHLORIDE 0.9% 100 ML IVPB PRN
[2023-07-04] MEDS: LIDOCAINE 1% (10MG/ML) FOR IV START INTRADERMA ONE ×2 (12:20→12:25)
[2023-07-04] MEDS: GABAPENTIN 300 MG CAP PO PRN (12:20)
[2023-07-04] MEDS: ACETAMINOPHEN TAB 500 MG TAB PO PRN (12:20)
[2023-07-04] MEDS: LACTATED RINGERS 1,000 ML IV SCH (12:20)
[2023-07-04] MEDS: ONDANSETRON 4 MG/2 ML VIAL IVP PRN (12:30)
[2023-07-04] MEDS: SCOPOLAMINE 1 MG/72 HR PATCH TRANSDERM ONE (12:30)
[2023-07-04] MEDS: DEXAMETHASONE SOD PHOSPHATE 4 MG/ML 1 ML VIAL IVP ONE (12:30)
[2023-07-04] MEDS ORDERED: NEOSTIGMINE 1 MG/ML 10 ML VIAL ONE (14:00)
[2023-07-04] MEDS ORDERED: ROCURONIUM 10 MG/ML (5 ML VIAL) IV ONE (14:00)
[2023-07-04] MEDS ORDERED: ePHEDrine 50 MG/ML 1 ML VIAL ONE (14:00)
[2023-07-04] MEDS ORDERED: MIDAZOLAM 2 MG/2 ML VIAL ONE (14:00)
[2023-07-04] MEDS ORDERED: KETAMINE HCL IN 0.9 % NACL 50 MG/5 ML SYRINGE ONE (14:00)
[2023-07-04] MEDS ORDERED: PROPOFOL 10 MG/ML 20 ML VIAL IV ONE (14:00)
[2023-07-04] MEDS ORDERED: fentaNYL (PF) 50 MCG/ML 2 ML AMP ONE (14:00)
[2023-07-04] MEDS ORDERED: LIDOCAINE 1% INJ 10MG/ML (20 ML MDV) ONE (14:00)
[2023-07-04] MEDS ORDERED: PHENYLEPHRINE 10 MG/ML VIAL ONE (14:00)
[2023-07-04] MEDS ORDERED: SUCCINYLCHOLINE CHLORIDE 200 MG/10 ML VIAL IV ONE (14:00)
[2023-07-04] MEDS ORDERED: GLYCOPYRROLATE 0.2 MG/ML 2 ML VIAL ONE (14:00)
[2023-07-04] MEDS: GELATIN SPONGE,ABSORB (SMALL) 1 EACH SPONGE TOPICAL ONE (14:57)
[2023-07-04] MEDS: BUPIVACAINE (PF) 0.5% 30 ML VIAL SQ ONE ×3 (14:58→16:35)
[2023-07-04] MEDS: LIDOCAINE 2%-EPI 1:100,000 20 ML VIAL SQ ONE ×3 (14:58→16:35)
[2023-07-04] MEDS: THROMBIN (BOVINE) 5,000 UNIT VIAL TOPICAL ONE (14:58)
[2023-07-04] MEDS: LACTATED RINGERS 1,000 ML IV ONE (14:59)
[2023-07-04] MEDS: HYDROmorphone 0.5 MG/0.5 ML SYRINGE IVP PRN (17:15)
[2023-07-04] MEDS: droPERidol 5 MG/2 ML VIAL IVP ONE (17:28)
[2023-07-04] MEDS ORDERED: MAGNESIUM HYDROXIDE 2,400 MG/30 ML CUP PO PRN (17:40)
[2023-07-04] MEDS ORDERED: HYDROcodone/APAP 5-325MG 1 EACH TAB PO PRN (17:40)
[2023-07-04] MEDS: MEPERIDINE 50 MG/ML SYRINGE IVP ONE (17:41)
--- NOTE | 2023-07-04 17:53 | FL ---
EXAMINATION TYPE: FL guidance operating room, XR lumbar spine 2 or 3V DATE OF EXAM: 07/04/2023 Comparison: None Clinical History: 38-year-old female MIN INVASIVE LUMBAR FUSION Findings: min invasive lumbar fusion. FL time [address] Connolly. 7 images scanned into PACS, 10 i mages sent in PACS. DAP 3957.056 mGycm2. Impression: Intraoperative fluoroscopy as above.
[2023-07-04] MEDS: ACETAMINOPHEN TAB 325 MG TAB PO SCH (18:04)
[2023-07-04] MEDS: HYDROmorphone 1 MG/ML 1 ML SYRINGE IVP PRN (19:49)
--- NOTE | 2023-07-04 21:02 | CT ---
EXAMINATION TYPE: CT lumbar spine wo con DATE OF EXAM: 07/04/2023 COMPARISON: 05/13/2023 HISTORY: s/p L5-S1 PLIF CT DLP: 1418.[address] of the lumbar spine was performed. Bone and soft tissue window settings are submitted as well as coronal and sagittal reconstructions. L1-L2: Normal disc space height. No disc herniation protrusion or central stenosis. No facet joint arthropathy. No evidence for foraminal encroachment. L2-L3: Normal disc space height. No disc herniation protrusion or central stenosis. No facet joint arthropathy. No evidence for foraminal encroachment. L3-L4: Normal disc space height. No disc herniation protrusion or central stenosis. No facet joint arthropathy. No evidence for foraminal encroachment. L4-L5: Normal disc space height. No disc herniation protrusion or central stenosis. No facet joint arthropathy. No evidence for foraminal encroachment. L5-S1: Postoperative changes of decompressive laminectomy. Pedicular screws are in place at L5 and S1 . Intervertebral body spacer is noted at L5-S1. Postoperative alignment is within normal limits. Stre ak artifact does limit evaluation. Minimal postsurgical soft tissue changes seen. No paraspinal masses are identified. Lumbar segments are free if fracture. IMPRESSION: 1. Postoperative changes at L5-S1 as noted above.
[2023-07-04] MEDS: HYDROcodone/APAP 10-325MG 1 EACH TAB PO PRN (21:32)
[2023-07-04] MEDS: GABAPENTIN 300 MG CAP PO SCH (22:00)
[2023-07-04] MEDS: CYCLOBENZAPRINE 5 MG TAB PO PRN (22:00)
--- NOTE | 2023-07-05 09:44 | P.PN ---
Subjective Progress Note Date: 07/05/23 Principal diagnosis: L5-S1 spondylolisthesis; low back pain; left lower extremity radiculopathy Patient was seen at bedside this morning lying in semirecumbent position dressing over lumbar spine. Patient says she didn't get up this morning once fully was removed to try and urinary, but she was unable to. Patient says she is in a lot of pain currently. Medication has helped minimally with pain thus far. Patient says she does not have a walker at home. Patient says she does live with his bowels at home who will be helping her out once she is discharged from hospital. Patient says she has not had a bowel movement yet, however, patient says she has been passing gas. Patient says most of the pain is in the low back with some radiation down the left leg. Patient denies chest pain, fever, shortness breath, nausea, vomiting, change in vision, loss of bowel/bladder control. Objective - Vital Signs Vital signs: Vital Signs Temp 98.4 F 07/05/23 07:29 Pulse 86 07/05/23 07:29 Resp 18 07/05/23 07:29 BP 100/63 07/05/23 07:29 Pulse Ox 95 07/05/23 07:29 FiO2 Intake & Output 07/04/23 07/05/23 07/05/23 18:59 06:59 18:59 Intake Total 2400 450 Output Total 275 1050 Balance 2125 -600 Weight 104 kg Intake: IV 2400 Oral 450 Output: Urine 200 1050 Estimated Blood Loss 75 Other: Voiding Method Indwelling Catheter - Exam Dressings present over lumbar spine appeared to be clean, dry, and intact. Negative for any active drainage. [place] appear to be well aligned and intact. Sensation is equal, symmetric, bilaterally intact throughout the upper and lower extremities on exam. There is a moderate amount of tenderness to palpation diffusely throughout the low back near incisions. Nontender to palpation throughout rest of exam. Patient does have similar range of motion in the bilateral hips and flexion/extension secondary to referred pain to the low back. Patient has full range of motion throughout bilateral upper extremities on exam. 5/5 in all major motor exam bilateral upper extremities. 4-/5 in left lower extremity exam. 4/5 and right lower extremity on exam. Radial pulses intact, 2+ bilaterally. Cap refill under 3 seconds in digits upper extremity. Negative [place] bilaterally. Negative [place]. Negative clonus bilaterally. Assessment and Plan Assessment: L5-S1 spondylolisthesis; low back pain; left lower extremity radiculopathy - Postop day #1 status post L5-S1 MIS PLIF Plan: L5-S1 spondylolisthesis; low back pain; left lower extremity radiculopathy - surgery performed yesterday, 07/04/2023 L5-S1 MIS PLIF. Patient stable at bedside this morning. Prescription for walker was signed. Pain medication needed. Plan to work with therapy today. We'll keep patient 1 more night for additional pain control and therapy. Plan for discharge home tomorrow versus Friday. 2. Appreciate medical management 3. Pain management - [place]; Flexeril; gabapentin; Dilaudid 4. GI prophylaxis - senna 5. DVT prophylaxis - mechanical 6. PT/OT - weightbearing as tolerated with walker and assistance as needed 7. Encourage incentive spirometer use 8. Discharge planning - Plan for discharge home tomorrow versus Friday. Time with Patient: Less than 30
[2023-07-05] MEDS ORDERED: ALPRAZolam 0.25 MG TAB PO PRN (10:36)
[2023-07-05 12:40] LABS: Blood Urea Nitrogen 11.6 mg/dL (9.0-27.0); Calcium 8.9 mg/dL (8.7-10.3); Carbon Dioxide 26.2 mmol/L (21.6-31.8); Chloride 104 mmol/L (96-109); Glucose 124 mg/dL (70-110); Potassium 4.6 mmol/L (3.5-5.5); Sodium 139 mmol/L (135-145)
[2023-07-05 13:05] LABS: Basophils # (A) 0.03 X 10*3/uL (0.00-0.10); Basophils % (A) 0.2 %; Eosinophils # (A) 0 X 10*3/uL (0.04-0.35); Eosinophils % (A) 0 %; HCT 38.7 % (37.2-46.3); HGB 12.5 g/dL (12.0-15.0); Lymphocytes # (A) 1.27 X 10*3/uL (0.90-5.00); Lymphocytes % (A) 6.7 %; MCH 30.3 pg (27.0-32.0); MCHC 32.3 g/dL (32.0-37.0); MCV 93.7 FL (80.0-97.0); Mean Platelet Volume 9.6 FL (9.5-12.2); Monocytes # (A) 1.11 X 10*3/uL (0.20-1.00); Monocytes % (A) 5.8 %; NRBC Per 100 WBC 0 X 10*3/uL (0.00-0.01); Neutrophils # (A) 16.51 X 10*3/uL (1.80-7.70); Neutrophils % (A) 86.8 %; Platelet Count 264 X 10*3/uL (140-440); RBC 4.13 X 10*6/uL (4.10-5.20); RDW 12.9 % (11.5-14.5); WBC 19.02 X 10*3/uL (4.50-10.00)
--- NOTE | 2023-07-05 13:20 | P.CONS ---
History of Present Illness - Reason for Consult Consult date: 07/05/23 Medical management - History of Present Illness History of present illness; patient is a 38-year-old lady presented to the hospital for elective L5-S1 lumbar fusion on 07/04. Patient has been following u p outpatient with orthopedic spine has been complaining of lower back pain that radiates down bilateral buttocks hips and lower extremities patient was also complaining of severe left leg pains. Patient's symptoms have been interfering with her daily activities. Patient discussed with orthopedic spine and they recommended surgery for which patient presented yesterday. Postoperatively internal medicine team was consulted for medical management REVIEW OF SYSTEMS: CONSTITUTIONAL: No fever, no malaise, no fatigue. HEENT: No recent visual problems or hearing problems. Denied any sore throat. CARDIOVASCULAR: No chest pain, orthopnea, PND, no palpitations, no syncope. PULMONARY: No shortness of breath, no cough, no hemoptysis. GASTROINTESTINAL: No diarrhea, no nausea, no vomiting, no abdominal pain. NEUROLOGICAL: No headaches, no weakness, no numbness. HEMATOLOGICAL: Denies any bleeding or petechiae. GENITOURINARY: Complaining of urinary retention MUSCULOSKELETAL/RHEUMATOLOGICAL: Complaining of back pain ENDOCRINE: Denies any polyuria or polydipsia. The rest of the 14-point review of systems is negative. PHYSICAL EXAMINATION: GENERAL: The patient is alert and oriented x3, not in any acute distress. Well developed, well nourished. HEENT: Pupils are round and equally reacting to light. EOMI. No scleral icterus. No conjunctival pallor. Normocephalic, atraumatic. No pharyngeal erythema. No thyromegaly. CARDIOVASCULAR: S1 and S2 present. No murmurs, rubs, or gallops. PULMONARY: Chest is clear to auscultation, no wheezing or crackles. ABDOMEN: Soft, nontender, nondistended, normoactive bowel sounds. No palpable organomegaly. MUSCULOSKELETAL: No joint swelling or deformity. EXTREMITIES: No cyanosis, clubbing, or pedal edema. NEUROLOGICAL: Gross neurological examination did not reveal any focal deficits. SKIN: Lumbar area surgical incision seen Assessment and plan L5-S1 spondylolisthesis status post L5-S1 MIS PLIF Grade II spondylolisthesis of L5 on S1, unstable Left lower extremity radiculopathy Left lower extremity weakness Low back pain Urinary retention Major depression Monitor vital signs Monitor CBC Monitor CMP Continue pain control per orthopedic spine Continue DVT prophylaxis per orthopedic spine Continue patient on bladder management per protocol Resume home meds Labs and medication were reviewed.. Continue same treatment. Continue with symptomatic treatment. Resume home medication. Monitor labs and vitals. DVT and GI prophylaxis. Further recommendations as per clinical course of the patient Dictation was produced using [email or web address] dictation software. please excuse any grammatical, word or spelling errors. Past Medical History Past Medical History: No Reported History Additional Past Medical History / Comment(s): chronic lower back radiating down left leg History of Any Multi-Drug Resistant Organisms: None Reported Past Surgical History: Bariatric Surgery, Section, Cholecystectomy Additional Past Surgical History / Comment(s): EGD. PAIN CLINIC NERVE BLOCKS.SLEEVE GASTRECTOMY 01-15-21. cyst removed off buttocks Past Anesthesia/Blood Transfusion Reactions: Family History of Problems w/ Anesthesia, Motion Sickness, Postoperative Nausea & Vomiting (PONV) Additional Past Anesthesia/Blood Transfusion Reaction / Comm: "I wake up confused and want to get right up",. no hx blood transfusion. dad has hard time coming out of anesthesia-confused Past Psychological History: Anxiety Additional Psychological History / Comment(s): ANXIETY INDUCED INSOMNIA Smoking Status: Never smoker Past Alcohol Use History: None Reported Past Drug Use History: None Reported - Past Family History Mother Family Medical History: No Reported History Father Family Medical History: Cancer Additional Family Medical History / Comment(s): leukemia Medications and Allergies Home Medications Medication Instructions Recorded Confirmed Type traZODone HCL 150 mg PO HS 10/20/20 06/26/23 History Citalopram Hydrobromide [CeleXA] 20 mg PO HS 01/10/21 06/26/23 History levonorgestreL [Mirena] 1 each IY DIRECTED 01/10/21 06/26/23 History ALPRAZolam [Xanax] 0.25 mg PO BID PRN 09/18/21 06/26/23 History Multivit with Calcium,Iron,Min 1 each PO DAILY 06/26/23 06/26/23 History [Women's Multivitamin] Allergies Allergy/AdvReac Type Severity Reaction Status Date / Time bubble bath Allergy Rash/Hives Uncoded 07/04/23 12:11 perfume Allergy Rash/Hives Uncoded 07/04/23 12:11 Physical Exam Vitals: Vital Signs Temp Pulse Pulse Pulse Resp BP BP 07/05/23 07:29 98.4 F 86 18 100/63 07/05/23 02:10 98.4 F 90 17 106/69 07/04/23 20:30 92 116/74 07/04/23 20:15 93 123/75 07/04/23 20:00 94 117/76 07/04/23 19:45 94 131/84 07/04/23 19:30 101 H 138/79 07/04/23 19:18 97.8 F 103 H 21 121/66 07/04/23 19:15 106 H 108/66 07/04/23 19:00 90 115/75 07/04/23 18:45 91 114/73 07/04/23 18:25 97.3 F L 95 20 127/74 07/04/23 18:15 98 16 112/57 07/04/23 18:00 89 16 114/57 07/04/23 17:45 86 16 114/55 07/04/23 17:29 92 16 155/99 07/04/23 17:14 90 16 135/73 07/04/23 16:59 97 F L 85 16 118/55 07/04/23 12:22 97.9 F 70 16 115/61 Pulse Ox 07/05/23 07:29 95 07/05/23 02:10 91 L 07/04/23 20:30 93 L 07/04/23 20:15 07/04/23 20:00 07/04/23 19:45 07/04/23 19:30 93 L 07/04/23 19:18 94 L 07/04/23 19:15 98 07/04/23 19:00 98 07/04/23 18:45 95 07/04/23 18:25 95 07/04/23 18:15 07/04/23 18:00 100 07/04/23 17:45 96 07/04/23 17:29 100 07/04/23 17:14 100 07/04/23 16:59 100 07/04/23 12:22 99 Intake and Output 07/04/23 07/05/23 07/05/23 22:59 06:59 14:59 Intake Total 500 450 Output Total 275 1050 Balance 225 -600 Intake: IV 500 Oral 450 Output: Urine 200 1050 Estimated Blood Loss 75 Other: Voiding Method Indwelling Catheter Weight 104 kg Results CBC & Chem 7: 07/05/23 04:16 07/05/23 04:12
[2023-07-05] MEDS: PANTOPRAZOLE 40 MG TABLET PO SCH (17:23)
[2023-07-05] MEDS: traZODone HCL 50 MG TAB PO SCH (20:04)
[2023-07-05] MEDS: CITALOPRAM HYDROBROMIDE 20 MG TAB PO SCH (20:04)
[2023-07-05] MEDS: HYDROmorphone 0.5 MG/0.5 ML SYRINGE IVP PRN (21:07)
[2023-07-05] MEDS: CALCIUM CARBONATE 500 MG CHEWABLE PO PRN (21:07)
[2023-07-06 02:47] VITALS: TEMP 98.4
[2023-07-06 08:24] VITALS: BP 99/63; PULSE 86; RESP 18
[2023-07-06] MEDS: MULTIVITAMINS, THERA 1 EACH TAB PO SCH (09:05)
[2023-07-06] MEDS: SENNOSIDES-DOCUSATE SODIUM 1 EACH TAB PO PRN (09:15)
--- NOTE | 2023-07-06 10:55 | P.PN ---
Subjective Progress Note Date: 07/06/23 Principal diagnosis: L5-S1 spondylolisthesis; low back pain; left lower extremity radiculopathy Patient was seen at bedside this morning lying in semirecumbent position dressing over lumbar spine. Patient says she got up several times yesterday and walked around the room using walker. Patient says she did get up this morning as well and walked around the room. Patient says she is looking forward to going home later today. Patient says she does not have a walker at home. P atient says she has not had a bowel movement yet, however, patient says she has been passing gas. Patient says most of the pain is in the low back with some radiation down the left leg. Patient denies chest pain, fever, shortness breath, nausea, vomiting, change in vision, loss of bowel/bladder control. Objective - Vital Signs Vital signs: Vital Signs Temp 98.4 F 07/06/23 07:46 Pulse 86 07/06/23 07:46 Resp 18 07/06/23 07:46 BP 99/63 07/06/23 07:46 Pulse Ox 93 L 07/06/23 07:46 FiO2 Intake & Output 07/05/23 07/06/23 07/06/23 18:59 06:59 18:59 Output Total 350 Balance -350 Output: Urine 350 Other: Voiding Method Indwelling Catheter Toilet # Voids 1 1 - Exam Dressings present over lumbar spine appeared to be clean, dry, and intact. Negative for any active drainage. Jimy appear to be well aligned and intact. Sensation is equal, symmetric, bilaterally intact throughout the upper and lower extremities on exam. There is a moderate amount of tenderness to palpation diffusely throughout the low back near incisions. Nontender to palpation throughout rest of exam. Patient does have similar range of motion in the bilateral hips and flexion/extension secondary to referred pain to the low back. Patient has full range of motion throughout bilateral upper extremities on exam. 5/5 in all major motor exam bilateral upper extremities. 4-/5 in left lower extremity exam. 4/5 and right lower extremity on exam. Radial pulses intact, 2+ bilaterally. Cap refill under 3 seconds in digits upper extremity. Negative Homans bilaterally. Negative Palmer. Negative clonus bilaterally. - Labs CBC & Chem 7: 07/05/23 04:16 07/05/23 04:12 Labs: Abnormal Lab Results - Last 24 Hours (Table) 07/05/23 07/05/23 Range/Units 04:12 04:16 WBC 19.02 H (4.50-10.00) X 10*3/uL Immature Gran # 0.10 H (0.00-0.04) X 10*3/uL Neutrophils # 16.51 H (1.80-7.70) X 10*3/uL Monocytes # 1.11 H (0.20-1.00) X 10*3/uL Eosinophils # 0 L (0.04-0.35) X 10*3/uL Glucose 124 H (70-110) mg/dL Assessment and Plan Assessment: L5-S1 spondylolisthesis; low back pain; left lower extremity radiculopathy - Postop day #2 status post L5-S1 MIS PLIF Plan: L5-S1 spondylolisthesis; low back pain; left lower extremity radiculopathy - surgery performed 07/04/2023 L5-S1 MIS PLIF. Patient stable at bedside this morning. walker at bedside. Pain medication needed. Plan to work with therapy today. Discharge home today 2. Appreciate medical management 3. Pain management - [place]; Flexeril; gabapentin; Dilaudid 4. GI prophylaxis - senna 5. DVT prophylaxis - mechanical 6. PT/OT - weightbearing as tolerated with walker and assistance as needed 7. Encourage incentive spirometer use 8. Discharge planning - discharge home today Time with Patient: Less than 30
--- NOTE | 2023-07-06 11:02 | P.DS ---
Providers Date of admission: 07/04/2023 Expected date of discharge: 07/06/23 Attending physician: Candelario Connolly DO Consults: 07/04/23 17:40 Consult Physician Routine Consulting Provider: Danelle Gustafson Consult Reason/Comments: medical management s/p L5-S1 PLIF Do you want consulting provider notified?: Yes Primary care physician: Cat Colon Hospital Course: Date of admission: 07/04/2023 Date of discharge: 07/06/2023 Admission diagnosis: L5-S1 spondylolisthesis; low back pain; left lower extremity radiculopathy Discharge diagnosis: Same Attending physician: Dr. Connolly Surgical procedures: L5-S1 MIS PLIF Brief history: Patient is a 38-year-old female with a history of L5-S1 spondylolisthesis; low back pain; left lower extremity radiculopathy. At this point patient has failed conservative treatment measures and has opted to proceed with a elective L5-S1 MIS PLIF. Hospital course: Details of patient's surgery can be found in operative report. Patient tolerated the procedure well and was subsequently transported to orthopedic floor. Patient's orthopeidc and medical care was provided daily. Patient had daily laboratory tests performed for evaluation of overall blood counts. Patient had daily physical therapy to include strengthening range of motion as well as education with walker ambulation. Patient was noted to have a relatively uneventful postoperative course. Patient reported satisfactory pain control with oral pain medications by postoperative day 2. Patient showed satisfactory progress with physical therapy. Patient moved steadily through the program and had no difficulty meeting the goals by postoperative day 2. Given patient's otherwise satisfactory course and having met physical therapy goals, plan is to discharge patient home on postoperative day 2. Discharge condition/disposition: Patient will be discharged home in stable condition. Discharge medications: Instructions are given on resumption of patient's normal daily medications per primary care recommendation, in addition patient will be prescribed Muse; gabapentin; Flexeril; senna; Duricef. Spine Discharge and Recovery Instructions Date of Surgery: 07/04/2023 Diagnosis: L5-S1 spondylolisthesis; low back pain; left lower extremity radiculopathy Procedure: L5-S1 MIS PLIF Medications: See medication list All medication refills should be obtained through your primary care doctor or your clinic spine surgeon. Please discuss prescription refills at your follow up appointment. Do not call the hospital for medication refills. Dressing: Leave your dressing in place for a total of 5 days post operatively. Then you may remove your dressing and leave open to air. Keep the area clean and if not able to keep area clean, then cover with sterile gauze and tape. Showering: You may shower 3 days after your procedure allowing soap and water to run over incision. Do not scrub. Do not soak. Blot dry. Follow up: Please confirm a follow up appointment with your surgeon 3 weeks post operatively. Please make an appointment to follow up with your PCP in 1-2 weeks after surgery for evaluation 3 phase, 3-week plan POST OP WEEKS 1-3 1. Lifting/carrying/pushing/pulling limited to less than 5 pounds. 2. Do not sit for longer than 15 minutes at one time. Get up and walk around. Prolonged sitting is NOT advised. If you lay down, see if you can tolerate laying down on you front (belly side) 3. Walk for periods of 15 minutes = 1 mile but no longer; do it multiple times times each day. 4. Ice your low back after activity. POST OP WEEKS 3-6 1. Lifting limited to less than 20 pounds. 2. Do not sit for longer than 30 minutes at a time. Frequently change positions. Use a sit-to stand workstation or take frequent breaks from sitting if you have returned to work. 3. Walk for 30 minutes each day. If possible, do these three or more times a day POST OP WEEKS 6+ At your 6-week appointment we will give you a physical therapy referral to focus on a core stabilization and strengthening program. You should also work on leg & buttock strengthening, hamstring & quadriceps stretching, and continue a low impact aerobic activity program such as swimming, walking, or riding a stationary bicycle. During the initial 6 weeks after your surgery, you are at the highest risk of re-injuring your spine. You should generally avoid BLTs (bending, lifting and twisting combination motions) and follow the above guidelines to reduce the chance of reinjury. You can anticipate post op appointments in our office at approximately 3 weeks and 6 weeks after your surgery. INCISION CARE: If your incision is not draining you do NOT need to cover it with a dressing. Keep your incision clean, dry and intact. In most cases, we apply skin glue, tre or sutures to the incision at the time of surgery. This will be like a crust or have the appearance of a scab and will fall off in time on its own. The stitches or tre need to be removed at 3 weeks post op appointment. You may begin to shower 3 days after surgery (this allows the glue to person well). However, please avoid scrubbing the incision site or peeling off any of the skin glue. This will ensure optimal healing of your incision. Also, during this time avoid soaking the incision area in water - this includes swimming pools, hot tubs or baths. No ointments, lotions or oils on the incision until your surgeon allows. Leave tre, sutures or glue in place. Neurological dysfunction that comes on suddenly can also be a sign of a stroke. Below some common symptoms of a stroke are listed: B - balance difficulty such as sudden onset walking or leaning to one side - NEW E - eye problem such as sudden double vision or trouble seeing on one side - NEW F - Facial weakness or numbness on one side - NEW A - Arm or leg weakness or numbness on one side - NEW S - Slurred speech or difficulty with word finding - NEW T - Time is BRAIN! Call 911 as soon as you recognize these symptoms Diet: Consume a regular diet rich in vegetables and lean protein such as chicken or fish. You should consume in a ratio of approximately 20% fats|40% carbohydrates|40%protein. Vegetables, sweet potatoes, brown rice or quinoa are examples of good carbohydrates. Chips, white bread, cookies and sweets/sugar are examples of bad carbohydrates. Limit your bad carbs, go wild with good carbs. "Life's Simple 7" Guidelines as per [employer] These will help you reclaim your life after surgery and cell tender helper in your recovery, keeping in mind your restrictions. (1) Get Active. Physical activity can help people lose weight, control high blood pressure and cholesterol, feel emotionally better, and sleep better. (2) Control Cholesterol. Avoid a diet high in saturated fat, trans fat, & cholesterol. Limit whole milk & cream, ice cream, butter, egg yolks, processed meats (like sausage and hot dogs), and fatty meats. Choose healthy foods that are low in saturated fat, trans fat and cholesterol which include: Fruits and vegetables, fiber rich grain products (like whole grain pasta and brown rice), lean meat such as chicken, fish, nuts, seeds, and legumes. (3) Eat Better. Eat small portions. Shop at the grocery with a list and do not stray from it. Tips for a healthy diet include: Limit sodium intake to less than 1500mg daily, avoid prepackaged, processed, and fast foods, choose a diet rich in fruits, vegetables, and whole grain, high fiber foods, and limit saturated & cholesterol in your diet. (4) Manage Blood Pressure. If you have high blood pressure, you should have a cuff at home so that you can check your blood pressure regularly. Be sure you have a good cuff. An arm one is generally better than a wrist one. Bring the cuff to a doctor's appointment to validate that the measurements that your cuff are taking are accurate. Take your blood pressure twice daily when you are sitting down and relaxing. Record the numbers in a log and bring this log with you to your doctors' appointments. (5) Lose Weight if your BMI is above 25. A healthy BMI is between 19-25. To c alculate Your BMI, you may use a Standard BMI Calculator on the NIH BMI website: <www.nhlbi.nih.gov/guidelines/obesity/BMI/bmicalc.htm>. Weigh oneself daily. If you are overweight, set a goal to lose weight. A pound a week loss if needed is a good target. (6) Reduce Blood Sugar. Limit foods and liquids with "added sugars." (Added sugars include sucrose, fructose, glucose, maltose, dextrose, high fructose corn syrup, corn syrup, concentrated fruit juice and honey). (7) Stop Smoking. If you smoke, quitting smoking is one of the best things that you can do for your health. Smoking increases your risk of heart attack, stroke, and peripheral vascular disease, which is a build-up of plaque in your arteries. Please discard all the cigarettes and lighters in your house. Have a plan for what you will do when you have the urge to smoke. Direct and second- hand smoke shortens your life as well as the lives of your family, friends and others around you. For your health and the health of those around you, please consider quitting! Proper Bending Body Mechanics: Maintain a wide stance with one foot slightly in front of the other. Keep your back straight. Bend utilizing the strength in your hips and knees. Do not bend at the waist. Maintain the lifted object at your waist-level close to your body. Avoid lifting weight that causes immediately pain or pain anywhere in the body afterwards. Smoking/Nicotine If there was ever one thing that you could do to increase your overall health, decrease your risk of cardiovascular problems by about 39% the second you make the choice, it is to STOP SMOKING. Your body's most instant gratification is the second you stop smoking. We have all heard the studies, read the articles but it is true, smoking is extremely bad for your overall health, and moreover it is detrimental to your bone health. Nicotine, IN ANY FORM, kills bone cells, prevents your body from healing fractures, and significantly prolongs healing after surgery. In spine surgery specifically, it increases your risk of not healing your bones to create a fusion and increases your risk of having a revision surgery due to this up to 60%. I know it is hard. I know it feels impossible. But there are ways. Take control of your life. We are here to help you through it. And when you are ready, ask us and we can direct you to help if you desire. Use the START Plan to Quit Smoking (please visit the Helpguide.org website listed below for more information): S = Set a quit date. Choose a date within the next 2 weeks, so you have enough time to prepare without losing your motivation to quit. If you mainly smoke at work, quit on the weekend, so you have a few days to adjust to the change. T = Tell family, friends, and co-workers that you plan to quit. Let your friends and family in on your plan to quit smoking and tell them you need their support and encouragement to stop. Look for a quit jorge who wants to stop smoking as well. You can help each other get through the rough times. A = Anticipate and plan for the challenges you'll face while quitting. Most people who begin smoking again do so within the first 3 months. You can help yourself make it through by preparing ahead for common challenges, such as nicotine withdrawal and cigarette cravings. R = Remove cigarettes and other tobacco products from your home, car, and work. Throw away all your cigarettes (no emergency pack!), lighters, ashtrays, and matches. Wash your clothes and freshen up anything that smells like smoke. Shampoo your car, clean your drapes and carpet, and steam your furniture. T = Talk to your doctor about getting help to quit. Your doctor can prescribe medication to help with withdrawal and suggest other alternatives. If you can't see a doctor, you can get many products over the counter at your local pharmacy or grocery store, including the nicotine patch, nicotine lozenges, and nicotine gum. Resources for Quitting Smoking: <https://www.[place].gov/documents/[facility]/Quit_Tobacco_Resources_for_patients_313 480_7.pdf> Supplementation: Take recommended dosages of Vitamin D and Calcium to help fortify your bones and help them to heal. See your health maintenance packet for dosages and recommended levels. DVT/VTE prophylaxis: You will be given compression stockings from the hospital. Wear these daily for the first two weeks after surgery. You may take them off at night. You may be prescribed a medication to help thin your blood. Take this as directed. If you are not prescribed this medication, early and frequent ambulation has been shown to be the best prophylaxis to deep vein thrombosis and sequelae related to this event. Assessment: L5-S1 spondylolisthesis; low back pain; left lower extremity radiculopathy Procedures: L5-S1 MIS PLIF Patient Condition at Discharge: Good Plan - Discharge Summary Discharge Rx Participant: No New Discharge Prescriptions: No Action RX: Citalopram Hydrobromide [CeleXA] 20 mg PO HS ALPRAZolam [Xanax] 0.25 mg PO BID PRN PRN Reason: Anxiety Multivit with Calcium,Iron,Min [Women's Multivitamin] 1 each PO DAILY RX: traZODone HCL 150 mg PO HS RX: levonorgestreL [Mirena] 1 each IY DIRECTED Discharge Medication List RX: traZODone HCL 150 mg PO HS 10/20/20 [History] RX: Citalopram Hydrobromide [CeleXA] 20 mg PO HS 01/10/21 [History] RX: levonorgestreL [Mirena] 1 each IY DIRECTED 01/10/21 [History] ALPRAZolam [Xanax] 0.25 mg PO BID PRN 09/18/21 [History] Multivit with Calcium,Iron,Min [Women's Multivitamin] 1 each PO DAILY 06/26/23 [History] Follow up Appointment(s)/Referral(s): Candelario Connolly DO [Doctor of Osteopathic Medicine] - 2 Weeks Patient Instructions/Handouts: *Surgery [facility] - Scopalamine Patch Instructions Activity/Diet/Wound Care/Special Instructions: Spine Discharge and Recovery Instructions Date of Surgery: 07/04/2023 Diagnosis: L5-S1 spondylolisthesis; low back pain; left lower extremity radiculopathy Procedure: L5-S1 MIS PLIF Medications: See medication list All medication refills should be obtained through your primary care doctor or your clinic spine surgeon. Please discuss prescription refills at your follow up appointment. Do not call the hospital for medication refills. Dressing: Leave your dressing in place for a total of 5 days post operatively. Then you may remove your dressing and leave open to air. Keep the area clean and if not able to keep area clean, then cover with sterile gauze and tape. Showering: You may shower 3 days after your procedure allowing soap and water to run over incision. Do not scrub. Do not soak. Blot dry. Follow up: Please confirm a follow up appointment with your surgeon 3 weeks post operatively. Please make an appointment to follow up with your PCP in 1-2 weeks after surgery for evaluation 3 phase, 3-week plan POST OP WEEKS 1-3 1. Lifting/carrying/pushing/pulling limited to less than 5 pounds. 2. Do not sit for longer than 15 minutes at one time. Get up and walk around. Prolonged sitting is NOT advised. If you lay down, see if you can tolerate laying down on you front (belly side) 3. Walk for periods of 15 minutes = 1 mile but no longer; do it multiple times times each day. 4. Ice your low back after activity. POST OP WEEKS 3-6 1. Lifting limited to less than 20 pounds. 2. Do not sit for longer than 30 minutes at a time. Frequently change positions. Use a sit-to stand workstation or take frequent breaks from sitting if you have returned to work. 3. Walk for 30 minutes each day. If possible, do these three or more times a day POST OP WEEKS 6+ At your 6-week appointment we will give you a physical therapy referral to focus on a core stabilization and strengthening program. You should also work on leg & buttock strengthening, hamstring & quadriceps stretching, and continue a low impact aerobic activity program such as swimming, walking, or riding a stationary bicycle. During the initial 6 weeks after your surgery, you are at the highest risk of re-injuring your spine. You should generally avoid BLTs (bending, lifting and twisting combination motions) and follow the above guidelines to reduce the chance of reinjury. You can anticipate post op appointments in our office at approximately 3 weeks and 6 weeks after your surgery. INCISION CARE: If your incision is not draining you do NOT need to cover it with a dressing. Keep your incision clean, dry and intact. In most cases, we apply skin glue, tre or sutures to the incision at the time of surgery. This will be like a crust or have the appearance of a scab and will fall off in time on its own. The stitches or tre need to be removed at 3 weeks post op appointment. You may begin to shower 3 days after surgery (this allows the glue to person well). However, please avoid scrubbing the incision site or peeling off any of the skin glue. This will ensure optimal healing of your incision. Also, during this time avoid soaking the incision area in water - this includes swimming pools, hot tubs or baths. No ointments, lotions or oils on the incision until your surgeon allows. Leave tre, sutures or glue in place. Neurological dysfunction that comes on suddenly can also be a sign of a stroke. Below some common symptoms of a stroke are listed: B - balance difficulty such as sudden onset walking or leaning to one side - NEW E - eye problem such as sudden double vision or trouble seeing on one side - NEW F - Facial weakness or numbness on one side - NEW A - Arm or leg weakness or numbness on one side - NEW S - Slurred speech or difficulty with word finding - NEW T - Time is BRAIN! Call 911 as soon as you recognize these symptoms Diet: Consume a regular diet rich in vegetables and lean protein such as chicken or fish. You should consume in a ratio of approximately 20% fats|40% carbohydrates|40%protein. Vegetables, sweet potatoes, brown rice or quinoa are examples of good carbohydrates. Chips, white bread, cookies and sweets/sugar are examples of bad carbohydrates. Limit your bad carbs, go wild with good carbs. "Life's Simple 7" Guidelines as per [employer] These will help you reclaim your life after surgery and cell tender helper in your recovery, keeping in mind your restrictions. (1) Get Active. Physical activity can help people lose weight, control high blood pressure and cholesterol, feel emotionally better, and sleep better. (2) Control Cholesterol. Avoid a diet high in saturated fat, trans fat, & cholesterol. Limit whole milk & cream, ice cream, butter, egg yolks, processed meats (like sausage and hot dogs), and fatty meats. Choose healthy foods that are low in saturated fat, trans fat and cholesterol which include: Fruits and vegetables, fiber rich grain products (like whole grain pasta and brown rice), lean meat such as chicken, fish, nuts, seeds, and legumes. (3) Eat Better. Eat small portions. Shop at the grocery with a list and do not stray from it. Tips for a healthy diet include: Limit sodium intake to less than 1500mg daily, avoid prepackaged, processed, and fast foods, choose a diet rich in fruits, vegetables, and whole grain, high fiber foods, and limit saturated & cholesterol in your diet. (4) Manage Blood Pressure. If you have high blood pressure, you should have a cuff at home so that you can check your blood pressure regularly. Be sure you have a good cuff. An arm one is generally better than a wrist one. Bring the cuff to a doctor's appointment to validate that the measurements that your cuff are taking are accurate. Take your blood pressure twice daily when you are sitting down and relaxing. Record the numbers in a log and bring this log with you to your doctors' appointments. (5) Lose Weight if your BMI is above 25. A healthy BMI is between 19-25. To calculate Your BMI, you may use a Standard BMI Calculator on the NIH BMI website: <www.nhlbi.nih.gov/guidelines/obesity/BMI/bmicalc.htm>. Weigh oneself daily. If you are overweight, set a goal to lose weight. A pound a week loss if needed is a good target. (6) Reduce Blood Sugar. Limit foods and liquids with "added sugars." (Added sugars include sucrose, fructose, glucose, maltose, dextrose, high fructose corn syrup, corn syrup, concentrated fruit juice and honey). (7) Stop Smoking. If you smoke, quitting smoking is one of the best things that you can do for your health. Smoking increases your risk of heart attack, stroke, and peripheral vascular disease, which is a build-up of plaque in your arteries. Please discard all the cigarettes and lighters in your house. Have a plan for what you will do when you have the urge to smoke. Direct and second- hand smoke shortens your life as well as the lives of your family, friends and others around you. For your health and the health of those around you, please consider quitting! Proper Bending Body Mechanics: Maintain a wide stance with one foot slightly in front of the other. Keep your back straight. Bend utilizing the strength in your hips and knees. Do not bend at the waist. Maintain the lifted object at your waist-level close to your body. Avoid lifting weight that causes immediately pain or pain anywhere in the body afterwards. Smoking/Nicotine If there was ever one thing that you could do to increase your overall health, decrease your risk of cardiovascular problems by about 39% the second you make the choice, it is to STOP SMOKING. Your body's most instant gratification is the second you stop smoking. We have all heard the studies, read the articles but it is true, smoking is extremely bad for your overall health, and moreover it is detrimental to your bone health. Nicotine, IN ANY FORM, kills bone cells, prevents your body from healing fractures, and significantly prolongs healing after surgery. In spine surgery specifically, it increases your risk of not healing your bones to create a fusion and increases your risk of having a revision surgery due to this up to 60%. I know it is hard. I know it feels impossible. But there are ways. Take control of your life. We are here to help you through it. And when you are ready, ask us and we can direct you to help if you desire. Use the START Plan to Quit Smoking (please visit the Helpguide.org website listed below for more information): S = Set a quit date. Choose a date within the next 2 weeks, so you have enough time to prepare without losing your motivation to quit. If you mainly smoke at work, quit on the weekend, so you have a few days to adjust to the change. T = Tell family, friends, and co-workers that you plan to quit. Let your friends and family in on your plan to quit smoking and tell them you need their support and encouragement to stop. Look for a quit jorge who wants to stop smoking as well. You can help each other get through the rough times. A = Anticipate and plan for the challenges you'll face while quitting. Most people who begin smoking again do so within the first 3 months. You can help yourself make it through by preparing ahead for common challenges, such as nicotine withdrawal and cigarette cravings. R = Remove cigarettes and other tobacco products from your home, car, and work. Throw away all your cigarettes (no emergency pack!), lighters, ashtrays, and matches. Wash your clothes and freshen up anything that smells like smoke. Shampoo your car, clean your drapes and carpet, and steam your furniture. T = Talk to your doctor about getting help to quit. Your doctor can prescribe medication to help with withdrawal and suggest other alternatives. If you can't see a doctor, you can get many products over the counter at your local pharmacy or grocery store, including the nicotine patch, nicotine lozenges, and nicotine gum. Resources for Quitting Smoking: <https://www.[place].gov/documents/[facility]/Quit_Tobacco_Resources_for_patients_313 480_7.pdf> Supplementation: Take recommended dosages of Vitamin D and Calcium to help fortify your bones and help them to heal. See your health maintenance packet for dosages and recommended levels. DVT/VTE prophylaxis: You will be given compression stockings from the hospital. Wear these daily for the first two weeks after surgery. You may take them off at night. You may be prescribed a medication to help thin your blood. Take this as directed. If you are not prescribed this medication, early and frequent ambulation has been shown to be the best prophylaxis to deep vein thrombosis and sequelae related to this event. Discharge Disposition: HOME SELF-CARE
--- NOTE | 2023-07-06 12:42 | P.PN ---
Subjective Progress Note Date: 07/06/23 patient is a 38-year-old lady presented to the hospital for elective L5-S1 lumbar fusion on 07/04. Patient has been following up outpatient with orthopedic spine has been complaining of lower back pain that radiates down bilateral buttocks hips and lower extremities patient was also complaining of severe left leg pains. Patient's symptoms have been interfering with her daily activities. Patient discussed with orthopedic spine and they recommended surgery for which patient presented yesterday. Postoperatively internal medicine team was consulted for medical management 07/06. Patient seen and examined. Patient passing gas, a urinary retention is improved. Patient is stable for discharge REVIEW OF SYSTEMS: CONSTITUTIONAL: No fever, no malaise,. CARDIOVASCULAR: No chest pain, no palpitations, no syncope. PULMONARY: No shortness of breath, no cough, GASTROINTESTINAL: No diarrhea, no nausea, no vomiting, no abdominal pain. NEUROLOGICAL: No headaches, no weakness, PHYSICAL EXAMINATION: GENERAL: The patient is alert and oriented x3, not in any acute distress. Well developed, well nourished. HEENT: Pupils are round and equally reacting to light. EOMI. No scleral icterus. No conjunctival pallor. Normocephalic, atraumatic. No pharyngeal erythema. No thyromegaly. CARDIOVASCULAR: S1 and S2 present. No murmurs, rubs, or gallops. PULMONARY: Chest is clear to auscultation, no wheezing or crackles. ABDOMEN: Soft, nontender, nondistended, normoactive bowel sounds. No palpable organomegaly. MUSCULOSKELETAL: No joint swelling or deformity. EXTREMITIES: No cyanosis, clubbing, or pedal edema. NEUROLOGICAL: Gross neurological examination did not reveal any focal deficits. SKIN: Lumbar area surgical incision seen Assessment and plan L5-S1 spondylolisthesis status post L5-S1 MIS PLIF Grade II spondylolisthesis of L5 on S1, unstable Left lower extremity radiculopathy Left lower extremity weakness Low back pain Urinary retention Major depression Monitor vital signs Monitor CBC Monitor CMP Continue pain control per orthopedic spine Continue DVT prophylaxis per orthopedic spine Continue patient on bladder management per protocol Patient is medically stable for discharge Labs and medication were reviewed.. Continue same treatment. Continue with symptomatic treatment. Resume home medication. Monitor labs and vitals. DVT and GI prophylaxis. Further recommendations as per clinical course of the patient Dictation was produced using dragon dictation software. please excuse any grammatical, word or spelling errors. Objective - Vital Signs Vital signs: Vital Signs Temp 98.4 F 07/06/23 07:46 Pulse 86 07/06/23 07:46 Resp 18 07/06/23 07:46 BP 99/63 07/06/23 07:46 Pulse Ox 93 L 07/06/23 07:46 FiO2 Intake & Output 07/05/23 07/06/23 07/06/23 18:59 06:59 18:59 Output Total 350 Balance -350 Output: Urine 350 Other: Voiding Method Indwelling Catheter Toilet # Voids 1 1 - Labs CBC & Chem 7: 07/05/23 04:16 07/05/23 04:12 Labs: Abnormal Lab Results - Last 24 Hours (Table) 07/05/23 07/05/23 Range/Units 04:12 04:16 WBC 19.02 H (4.50-10.00) X 10*3/uL Immature Gran # 0.10 H (0.00-0.04) X 10*3/uL Neutrophils # 16.51 H (1.80-7.70) X 10*3/uL Monocytes # 1.11 H (0.20-1.00) X 10*3/uL Eosinophils # 0 L (0.04-0.35) X 10*3/uL Glucose 124 H (70-110) mg/dL
--- NOTE | 2023-07-07 08:47 | P.OP ---
Date of Procedure: 07/04/23 Preoperative Diagnosis: 1. L5-S1 SPONDYLOLYSIS 2. L5-S1 SPONDYLOLISTHESIS GRADE II 3. FORAMINAL STENOSIS LUMBOSACRAL 4. LUMBAR RADICULOPATHY Postoperative Diagnosis: 1. L5-S1 SPONDYLOLYSIS 2. L5-S1 SPONDYLOLISTHESIS GRADE II 3. FORAMINAL STENOSIS LUMBOSACRAL 4. LUMBAR RADICULOPATHY Procedure(s) Performed: L5-S1 POSTERIOLATERAL AND INTERBODY FUSION L5-S1 INSTRUMENTATION L5-S1 LAMNIOFORAMINOTOMY FOR DECOMPRESSION AND CAAGE PLACEMENT L5-S1 INSERTION OF CAGE USE OF [employer] NAVIGATION FOR SCREW PLACEMENT 24313, 39213, 72006, 92201, 43073 USE OF IONM ALL SCREWS TESTING SAFE USE OF IO MICROSCOPE Implants: -KAREN EVEREST SCREW AND CAMERON SYSTEM -GLOBUS SABLE CAGE 12MM X 9-16 15 DEG -MAGNATOS, ARTHROCELL, ALLOCELL, CONTOUR, IFACTOR, AUTOGRAFT Anesthesia: GETA Surgeon: Candelario Connolly Instructional Paraprofessional #1: Forest Ma (WAS PRESENT AND ASSISTED WITH ALL ASPECTS OF THE CASE FROM POSITION TO CLOSURE) Estimated Blood Loss (ml): 50 IV fluids (ml): 1,200 Urine output (ml): 250 Pathology: none sent Condition: stable Disposition: PACU Indications for Procedure: Ms. Aguilar is presenting for evaluation of low back and bilateral lower extremity pain, left lower extremity numbness, tingling, and weakness. It was my pleasure to have seen and examined Ms. Aguilar. In our visit today we have had a chance to go over subjective complaints, physical examination findings and treatments including the natural course history without intervention and various interventional options. The patients imaging demonstrates: X-Rays of the Lumbar Spine taken in office on 04/18/2023; 5 views (AP, lateral flexion, & extension) reviewed by Dr. Connolly and demonstrate: L5-S1 spondylolysis with b/l pars defects at L5 causing Grade II spondylolisthesis that is mobile on F/E films. Pseudoarticulation has formed between S1 SAP and Pars of L5 which is unstable. Spondylosis at L5-S1 with near complete disc height loss. Flattened LL due to the collapse and the listhesis. Remaining features of the lumbar spine remain age appropriate with minimal disc height loss or fracture. No lesions. AP Pelvis: No lesions, no fractures. Level pelvis. MRI of Lumbar Spine [facility] 10/21[facility]: Redemonstration of the GII spondylolyisthesis of L5-S1 due to b/l pars defects and spondylolysis of L5-S1. No acute fractures noted. b/l foraminal stenosis that is moderate due to slip and disc bulge as well as ligamental hypertrophy and surrounding structures. No lesions noted. On physical exam, Ms. Aguilar demonstrates: A throbbing, pressure-like pain throughout the low back that radiates down into the bilateral buttock, hips, and lower extremities with a sharp, shooting quality. The patient states that her left leg symptoms are much more severe than the right at this time. The patient notes that her left leg pain is associated with numbness, tingling, and increased weakness. The patient states that her symptoms are exacerbated by prolonged activity, which makes it very difficult for her to complete many of her regular activities of daily living. The patient reports experiencing moderate to severe sleep disturbances related to her ongoing pain and associated symptoms. I have explained to the patient that as their condition progresses it will cause further neurological deficits and eventual paralysis. Based on the patients imaging, physical exam, and the rapid progression and disabling nature of their symptoms, at this time I recommend surgery in the form of a: Left L5-S1 Minimally invasive lumbar fusion with possible L4-S1 fusion. I discussed the risk and benefits of this procedure at length with Ms. Aguilar. The patient greed to considered pursuing the procedure above mentioned. Prior to surgery, she should follow up with her PCP (Cardio, ID, IM etc) for clearance. Questions were invited and answered, and the patient wishes to proceed as outlined below. Currently, I am recommendin.Left L5-S1 Minimally invasive lumbar fusion with possible L4-S1 fusion due to pedicular atrophy Description of Procedure: L5-S1 MIS TLIF BLANQUITA (L) The patient was seen and examined in the preoperative area. All preoperative protocols were followed. Informed consent was obtained, risks and benefits of the procedure were discussed at length. Risks including bleeding infection damage to the surrounding tissue and risk of reoperation were discussed with the patient. Risk of anesthesia up to and including was discussed with the patient. These are outlined in the risk review. They were willing to accept these risks and all the risks of surgery. The patient was given a weight-based dose of antibiotics in the form of 2 g Ancef. The patient was seen and evaluated by the anesthesia team who deemed them fit for surgery. The site was marked, the patient was willing to proceed with the procedure. The patient was transferred to the operative suite by the Department of anesthesia. They were then drifted off to sleep by the department anesthesia and GETA was performed. The patient tolerated this well. Quintero catheter was placed by nursing staff, a-traumatically. Once confirmation of lines and ventilation the patient was transferred to a prone Jaziel table very carefully. All bony prominences including wrists, elbows, axilla, chest, hips, and thighs, and feet were padded very well. Special attention was paid to the genitalia, and these were padded accordingly. SCDs were placed on bilateral lower extremi ties and were connected. Arms were well padded and placed on arm boards up and out in the 90/90 position. Once in position, again we confirmed good ventilation capabilities and that lines were running appropriately. The patients Lumbar spine was then exposed. 1010s were placed outlining the incision site. Standard alcohol was used to clean the incision site and allowed to dry. C-arm was used to needle localize the pedicles at L5-S1 and bio-suma the patient and confirm level for incision which was marked with a skin marker. Operative briefing was performed with all teams and everyone in agreement to proceed. The patient was then prepped and draped in a normal sterile fashion. Timeout was then performed, and all parties agreed with the procedure to be performed. Skin nicks were made over the PSIS on the right side and pins placed for the [employer] Navigation tracker. This was secured and then a 3D Zhiem spin was registered. Once registered it was tested and confirmed to be accurate. We then targeted pedicles b/l at L5 and S1 using navigated Jamshidi and drill guide. Wires were then placed in their void and confirmed to be in good position on AP and Lateral. Contralateral right side screws were then placed over wires and tested and they all tested safe. Attention was then turned to interbody fusion at L5-S1. Tubular retractor system was placed at the interspace of L5-S1 using biplanar c arm. Once in position and dilated up to 26mm tube it was locked to the bed and confirmed in good position. Microscope was then brought in for visualization. Limited myomectomy was performed and laminectomy, complete facetectomy and foraminotomy performed at L5-S1 using high speed sha and Kerrison rongure. The ligamentum was removed and dural sac decompressed. Exiting and traversing roots visualized and decompressed. Neural elements were then protected, and disc space accessed with an osteotome. Sequential shaving then done under lateral imaging and complete discectomy performed using flaco, pituitary and curette. Once good bleeding endplates accomplished and good height jew with trials, a combination of autograft, allograft and synthetic placed anterior in the disc space. The cage was then selected and impacted into place under lateral imaging. The cage was then expanded restoring height, lordosis and alignment. The cage was backfilled with bone graft through a funnel. The varnish melter removed and area inspected. Good cage placement, stable cage and no injuries. Area was irrigated copiously, and meticulous hemostasis achieved. The tubular retractor was then removed under direct visualization. Screws were then selected and placed over the previously placed wires on the ipsilateral side. This was done in the fashion described above. Screws were then tested, and all tested above 20 mA. Shells were then placed on the tabs. Cameron length was then measured, and rods selected. They were then placed through the MIS tabs, subfascial. These were then locked into place with set screws and final tightened. Cameron holders removed and images taken showing good placement of rods good lordosis and jew of height. Tabs were broken off. Wounds were then copiously irrigated with NSS. Sha used for TP decortication and mixture of MagnatOs, allograft and autograft packed posterolateral. Facia was then closed with 0 Vircyl. Deep subq closed with 0 Vicryl. Superficial subq closed with 2-0 Vicryl and skin with tre. Wound edges approximated very well. Wound was then cleaned with alcohol and dried. Wounds dressed in Optifoam dressings. The patient was then transferred off the table back to their hospital bed a- traumatically. They were extubated by the department of anesthesia. They were then transferred to PACU in stable condition having tolerated the procedure with no complications.
== END 2023-07-06 12:52 | disposition home or self-care (01) ==
LOC: OR 11:35 → 4SSUR 16:50 → OR 07-06 12:52
PROVIDERS: ATTEND Orthopaedic Surgery
DX: M47.817 Spondylosis without myelopathy or radiculopathy, lumbosacral region (principal); M43.17 Spondylolisthesis, lumbosacral region; F32.9 Major depressive disorder, single episode, unspecified; F41.9 Anxiety disorder, unspecified; M48.061 Spinal stenosis, lumbar region without neurogenic claudication; M54.16 Radiculopathy, lumbar region; E66.9 Obesity, unspecified; G47.00 Insomnia, unspecified; F17.210 Nicotine dependence, cigarettes, uncomplicated; Z68.25 Body mass index [BMI] 25.0-25.9, adult; Z79.899 Other long term (current) drug therapy
CPT/HCPCS: 22633; 22853; 22840; 63052; 81025; 80048; 85025; 72100; 72131; C1713; C1734; J2250; J0330; J1100; J2710; J2175; J0690 ×2; J2405; J2001; J3010; J1170 ×5; J2704; J1790; J2371; J0665

== ENCOUNTER → 2024-02-18 | Outpatient (CLI) | payer BC ==
--- NOTE | 2024-02-18 19:18 | MR ---
EXAMINATION TYPE: MR lumbar spine wo/w con DATE OF EXAM: 02/18/2024 COMPARISON: CT lumbar spine 07/04/2023 HISTORY: Lower back pain, BLE radiculopathy, surgery June 2023. CONTRAST: 11 mL intravenous Gadavist. TECHNIQUE: Multiplanar, multisequence images of the lumbar spine were acquired. FINDINGS: Pedicle screws are present L5-S1. Cord terminates at the L1-2 level. L1-2 through L4-5 dis c heights are preserved. Disc hydration is preserved. Vertebral body heights are preserved. Endplate changes are present L5-S1. L5-S1: Mild grade 1 spondylolisthesis is suspected at L5-S1. This is somewhat difficult to visualize despite metal appliances. No spinal canal stenosis present in the neural foramina cannot be well eval uated L4-L5: No significant disc bulge or disc herniation. No spinal canal stenosis. No foraminal stenosi s. L3-L4: No significant disc bulge or disc herniation. No spinal canal stenosis. No foraminal stenosi s. L2-L3: No significant disc bulge or disc herniation. No spinal canal stenosis. No foraminal stenosi s. L1-L2: No significant disc bulge or disc herniation. No spinal canal stenosis. No foraminal stenosi s. T12-L1: No significant disc bulge or disc herniation. No spinal canal stenosis. No foraminal stenos is. No abnormal enhancement. IMPRESSION: 1. Degenerative disc changes present L5-S1. Prior surgery with a disc spacer is present. A mild grade 1 spondylolisthesis is suspected but difficult to confirm. No suspicious spinal canal stenosis evide nt. 2. Remaining disc levels appear unremarkable without stenosis
== END | disposition home or self-care (01) ==
LOC: RADMRIMAIN 17:42
PROVIDERS: ATTEND Orthopaedic Surgery
DX: M51.37 Other intervertebral disc degeneration, lumbosacral region (principal); M47.27 Other spondylosis with radiculopathy, lumbosacral region
CPT/HCPCS: 72158; A9585

== ENCOUNTER → 2024-08-12 | Outpatient (CLI) | payer OTHER ==
[2024-08-12 08:22] VITALS: BP 122/80; PULSE 79; RESP 19; TEMP 96.8
--- NOTE | 2024-08-12 14:53 | P.PAINPG ---
PQRS Measure Charge Sheet Comment: HISTORY OF PRESENT ILLNESS: A 39 yr old female as a referral from Dr Connolly presents today w severe and chronic LBP > 1 yr secondary to radiculopathy, spondylosis and facet arthropathy without myelopathy for evaluation. Pt states pain level is provoked at 8 /10 in intensity, constant, localized in the L lumbar spine, predominantly axial, throbbing in character w occasional shooting pain towards the L hip, thigh, calf. Pain is provoked by bending, lifting. Pain is alleviated by PT x 6 wks which ended in October 2023, physician guided home exercises 4-5 times weekly since October 2023, medications, heat, ice, repositioning and rest . Oswestry axial pain score at 25. PMH: OA, MDD/ Anxiety PSH: L5-S1 PLIF (2023), Gastrectomy (2020), (2013), Cholecystectomy, EGD, SH: Negative x3 FH: Fa-Leukemia All: See list Meds: See list incl Tramadol REVIEW OF ORGAN SYSTEMS: CONSTITUTIONAL: No fevers or chills. No recent weight loss. NEUROLOGICAL: + numbness and tingling along the distal extremities. No seizure disorders or headaches. MUSCULOSKELETAL: + pain PSYCHIATRIC: Denies current depression or suicidal thoughts. Physical Examinations : Constitutional : Cooperative , not in acute distress . Neurologic : Cranial nerve II to XII intact. No focal neurological deficits. Psychiatric : alert & oriented x 3. Matching mood & appropriate affect. Judgment & insight intact. Musculoskeletal : Cervical Spine Motor strength in the deltoid and biceps: Normal right side. Normal Left side Motor strength biceps and the wrist extensors: Normal right side . Normal left side Motor strength in the triceps muscle: Normal right side. Normal left side Deep tendon reflexes: Normal at the biceps. Normal at Brachioradialis. Normal at triceps Vertebral body tenderness to deep palpation over Cervical facet loading test: positive bilaterally Spurling test: positive bilaterally Neck distraction test: positive bilaterally Palmer sign: positive bilaterally Lumbar spine +Incisional scar Motor strength lower extremities ,thigh and legs 5/5 Right side , 5/5 Left side Deep tendon reflexes : Normal Knee Jerk. Normal Ankle Jerk Vertebral body tenderness over L4 Nguyen Test positive L L4-L5, L5-S1 Lumbar facet Loading Test: positive Right / positive Left Range of motion of the lumbar spine Flexion 30 degrees, extension 10 degrees Straight Leg Raise test: Left/ Right positive at degrees Joe test: positive right / positive left. Severe tenderness over the Sacroiliac joint on the Right / Left sides Gaenslen test: positive bilaterally Seated flexion test: positive bilaterally. Sacral spine : Severe tenderness over the Sacroiliac joint: right side / left side Range of motion: Flexion of the lumbar spine <60 degrees Range of motion: Extension of the lumbar spine <20 degrees Gaenslen's Test positive Joe test: positive right side / left side Thigh Thrust Test Sacral Thrust Test Imaging: MRI non contrast of the lumbar spine from 03/09 reviewed Assessment/ Plan : L5-S1 PLIF Recommendation of L TFESI L4-L5, L5-S1 #1. Risks, benefits of procedure discussed and patient verbalized understanding. Admits to anti- coagulant use or medical history of diabetes. Protocol for discontinuation/ continuation of medications kamini procedure discussed. All questions answered. I have spent greater than 30 minutes on patient care today. Dr Coronado was available by phone for the evaluation of this patient. The time was used to review the medical records including relevant urine studies and Prescription history (MAPs), review of the available imaging, evaluation and examination of the patient, coordination of care with the medical staff and if applicable referring physicians, as well as creation of the medical record PQRS Narrative: Smoking Status Never smoker Hx Alcohol Use (MH) No Home Medications: Ambulatory Orders traZODone HCL 150 mg PO HS 10/20/20 Citalopram Hydrobromide [CeleXA] 20 mg PO HS 01/10/21 levonorgestreL [Mirena] 1 each IY DIRECTED 01/10/21 ALPRAZolam [Xanax] 0.25 mg PO BID PRN 09/18/21 Multivit with Calcium,Iron,Min [Women's Multivitamin] 1 each PO DAILY 06/26/23 Cyclobenzaprine [Flexeril] 5 mg PO TID #21 tablet 07/06/23 Gabapentin 300 mg PO TID #30 cap 07/06/23 HYDROcodone/APAP 10-325MG [Jackson 10-325] 1 tab PO Q6HR PRN #28 tab 07/06/23 Sennosides/Docusate Sodium [Senna Plus 8.6-50 mg Softgel] 1 each PO DAILY #20 capsule 07/06/23 cefaDROXiL [Duricef] 500 mg PO Q12HR 5 Days #10 cap 07/06/23 Controlled Substance Measures - Controlled Substance Measures Is patient prescribed a controlled substance at discharge?: No
== END ==
LOC: PNWHC3 07:50
PROVIDERS: ATTEND Specialist
DX: M43.27 Fusion of spine, lumbosacral region (principal); Z91.048 Other nonmedicinal substance allergy status
CPT/HCPCS: 99202

== ENCOUNTER 2024-08-26 06:15 | Day surgery (SDC) | payer OTHER ==
[2024-08-24 14:35] VITALS: BMI 34.4
[2024-08-26] MEDS ORDERED: IOPAMIDOL M200 10 ML VIAL ONE (07:26)
[2024-08-26] MEDS ORDERED: methylPREDNISolone ACETATE 80 MG/ML 1 ML VIAL ONE (07:26)
[2024-08-26 07:27] VITALS: TEMP 97.8
--- NOTE | 2024-08-26 07:48 | P.PCN ---
Date of Procedure: 08/26/24 Procedure(s) Performed: PREOPERATIVE DIAGNOSIS: 1-Lumbar radiculopathy . 2-history of laminectomy and fusion at L5-S1 POSTOPERATIVE DIAGNOSIS: Same as preop diagnosis. PROCEDURE 1. Transforaminal epidural steroid injection under fluoroscopic guidance at left L4-5, Left L5-S1 level. (Fluoroscopy in the radiology Department ) 2. Lumbar epidurogram . ANESTHESIA: Local with 1% lidocaine 3 ml. EBL: Minimal PROCEDURE INDICATION: The patient with low back pain and radiculopathy symptoms unresponsive to conservative treatment. PROCEDURE DESCRIPTION / TECHNIQUE: The patient was seen and identified in the preoperative area. Risks, benefits, complications, and alternatives were discussed with the patient. The patient agreed to proceed with the procedure and signed the consent. IV was started, and vital signs were stable. Patient was taken to the OR and time out was completed. The patient was placed in the prone position on procedure table and a pillow was placed under the abdomen to reduce lumbar lordosis. The lumbosacral area was prepped and draped in the usual sterile fashion. Critical pause was taken. Vital signs were closely monitored during the procedure. Using oblique fluoroscopy, the chin of the ``David dog at left L4-5 level was identified, and the skin and deeper tissues just below was localized with 1% lidocaine. Subsequently, a 22-gauge 5-inch spinal needle was advanced under a tunneled view fluoroscopic guidance just underneath the chin of the ``David dog at the left L4-5 Under lateral fluoroscopy, the needle was then advanced to the posterior border of the interforaminal space. After negative aspiration of CSF and blood and with no paresthesias, 1 mL Isovue 200 contrast dye was injected excellent epidurogram and outlining of the nerve root Subsequently, 3 mL of block solution containing 40 mg Depo-Medrol and 2 mL of 0.9% normal saline PF was injected. Needle was removed and the same procedure was repeated at the left L5-S1 level . At the end of the procedure, skin was cleansed, and bandages were applied. COMPLICATIONS:none DISPOSITION / PLANS: The patient was placed in a supine position and transferred to the recovery area in a stable condition for observation. There was no evidence of lower extremity motor or sensory deficit after the procedure. Patient was discharged from the recovery room after meeting discharge criteria. Home discharge instructions were given to the patient by the staff. The patient was reexamined prior to discharge.
[2024-08-26 07:55] VITALS: RESP 16
[2024-08-26 08:12] VITALS: BP 128/85; PULSE 77
--- NOTE | 2024-08-26 08:31 | FL ---
EXAMINATION TYPE: FL guided pain mgmt statistic DATE OF EXAM: 08/26/2024 CLINICAL INDICATION: Female, 39 years old with history of TRANSFORAMINAL; PHH, pain TECHNIQUE: Fluoroscopy. COMPARISON: None. FINDINGS: Fluoroscopic guidance was provided during pain relief procedure performed by Dr. Coronado . A total of 7.8 seconds of fluoroscopic time was utilized during the procedure and one image was ac quired. Image acquired shows needle localization in the lower lumbar spine off the midline. Degeneration changes of the visualized joints. Total DAP: 0.91152 mGym2. IMPRESSION: As Above. [facility], , 08/26/2024 8:29 AM
== END 2024-08-26 08:28 | disposition home or self-care (01) ==
LOC: ORPAIN 06:15
PROVIDERS: ATTEND Specialist
DX: M54.16 Radiculopathy, lumbar region (principal); Z98.890 Other specified postprocedural states; Z98.1 Arthrodesis status
CPT/HCPCS: 81025; 64483; 64484; Q9966; J1010

== ENCOUNTER → 2024-09-16 | Outpatient (CLI) | payer OTHER ==
[2024-09-16 10:14] VITALS: BP 112/72; PULSE 68; RESP 16; TEMP 97.3
--- NOTE | 2024-09-16 14:13 | P.PAINPG ---
PQRS Measure Charge Sheet Comment: HISTORY OF PRESENT ILLNESS: A 39 yr old female presents today w severe and chronic LBP > 1 yr secondary to radiculopathy, spondylosis and facet arthropathy without myelopathy for evaluation s/p L L4-L5/ L5-S1 #1. Pt states she experienced 80 % pain relief x 3 wks s/p procedure. Pt states pain level is provoked at 3 /10 in intensity, constant, localized in the L lumbar spine, predominantly axial, throbbing in character w occasional shooting pain towards the L hip, thigh, calf. Pain is provoked by bending, lifting. Pain is alleviated by PT x 6 wks which ended in October 2023, physician guided home exercises 4-5 times weekly since October 2023, medications, heat, ice, repositioning and rest . Interventional procedures include L TFESI L4-L5/ L5-S1 x1 Medications include Tramadol REVIEW OF ORGAN SYSTEMS: CONSTITUTIONAL: No fevers or chills. No recent weight loss. NEUROLOGICAL: + numbness and tingling along the distal extremities. No seizure disorders or headaches. MUSCULOSKELETAL: + pain PSYCHIATRIC: Denies current depression or suicidal thoughts. Physical Examinations : Constitutional : Cooperative , not in acute distress . Neurologic : Cranial nerve II to XII intact. No focal neurological deficits. Psychiatric : alert & oriented x 3. Matching mood & appropriate affect. Judgment & insight intact. Musculoskeletal : Cervical Spine Motor strength in the deltoid and biceps: Normal right side. Normal Left side Motor strength biceps and the wrist extensors: Normal right side . Normal left side Motor strength in the triceps muscle: Normal right side. Normal left side Deep tendon reflexes: Normal at the biceps. Normal at Brachioradialis. Normal at triceps Vertebral body tenderness to deep palpation over Cervical facet loading test: positive bilaterally Spurling test: positive bilaterally Neck distraction test: positive bilaterally Palmer sign: positive bilaterally Lumbar spine +Incisional scar Motor strength lower extremities ,thigh and legs 5/5 Right side , 5/5 Left side Deep tendon reflexes : Normal Knee Jerk. Normal Ankle Jerk Vertebral body tenderness over L4 Nguyen Test positive L L4-L5, L5-S1 Lumbar facet Loading Test: positive Right / positive Left Range of motion of the lumbar spine F lexion 30 degrees, extension 10 degrees Straight Leg Raise test: Left/ Right positive at degrees Joe test: positive right / positive left. Severe tenderness over the Sacroiliac joint on the Right / Left sides Gaenslen test: positive bilaterally Seated flexion test: positive bilaterally. Sacral spine : Severe tenderness over the Sacroiliac joint: right side / left side Range of motion: Flexion of the lumbar spine <60 degrees Range of motion: Extension of the lumbar spine <20 degrees Gaenslen's Test positive Joe test: positive right side / left side Thigh Thrust Test Sacral Thrust Test Imaging: MRI non contrast of the lumbar spine from 03/09 reviewed Assessment/ Plan : L5-S1 PLIF Will manage residual pain and may RTC on an as-needed basis. All questions answered. I have spent greater than 30 minutes on patient care today. Dr Coronado was available by phone for the evaluation of this patient. The time was used to review the medical records including relevant urine studies and Prescription history (MAPs), review of the available imaging, evaluation and examination of the patient, coordination of care with the medical staff and if applicable referring physicians, as well as creation of the medical record PQRS Narrative: Smoking Status Never smoker Hx Alcohol Use (MH) No Home Medications: Ambulatory Orders traZODone HCL 150 mg PO HS 10/20/20 levonorgestreL [Mirena] 1 each IY DIRECTED 01/10/21 ALPRAZolam [Xanax] 0.25 mg PO BID PRN 09/18/21 Multivit with Calcium,Iron,Min [Women's Multivitamin] 1 each PO DAILY 06/26/23 Citalopram Hydrobromide [Citalopram HBr] 40 mg PO DAILY 08/24/24 Cyclobenzaprine [Flexeril] 5 mg PO HS 08/24/24 traMADol HCL 50 mg PO Q6H PRN 3 Days #12 tab 09/16/24 Controlled Substance Measures - Controlled Substance Measures Is patient prescribed a controlled substance at discharge?: Yes When asked, does pt state using other controlled substances?: Yes If prescribed controlled substance>3 days was MAPS reviewed?: Prescribed <3 Days
== END ==
LOC: PNWHC3 07:52
PROVIDERS: ATTEND Specialist
DX: M43.27 Fusion of spine, lumbosacral region (principal); Z91.048 Other nonmedicinal substance allergy status
CPT/HCPCS: 99211